=== PATIENT | female | born 1950 | race Caucasian/White ===

== ENCOUNTER → 2018-01-23 08:13 | Outpatient (CLI) | payer MEDICARE, OTHER, SELFPAY ==
[2018-01-25 03:09] LABS: PROEL- A/G Ratio 1.4 (0.7-1.7); PROEL- Alpha-1 Globulin 0.2 g/dL (0.0-0.4); PROEL- Alpha-2 Globulin 0.8 g/dL (0.4-1.0); PROEL- Beta Globulin 0.9 g/dL (0.7-1.3); PROEL- Gamma Globulin 0.9 g/dL (0.4-1.8); PROEL- Globulin, Total 2.9 g/dL (2.2-3.9); PROEL- TOTAL PROTEIN 6.9 g/dL (6.0-8.5)
[2018-01-25 08:36] LABS: Arsenic 7245 7 ug/L (2-23); Hep C Antibodies <0.1 s/co ratio (0.0-0.9); Lipoprotein A 46 nmol/L (<75)
[2018-01-26 03:06] LABS: CHOLESTEROL TOTAL 202 mg/dL (100-199); HDL-C 52 mg/dL (>39); HDL-P TOTAL 31.7 umol/L (>=30.5); SMALL LDL-P 255 nmol/L (<=527); TRIGLYCERIDES 74 mg/dL (0-149)
[2018-01-26 07:54] LABS: ANTINUCLEAR ANTIBODIES DIRECT Negative (Negative)
[2018-01-26 07:55] LABS: LDL-C 135 mg/dL (0-99); LDL-P 1210 nmol/L (<1000); LP-IR SCORE ** 29 (<=45)
== END ==
PROVIDERS: Family Provider Internal Medicine; PCP Internal Medicine; Visit Provider Internal Medicine
DX: R20.2 Paresthesia of skin (principal); E78.00 Pure hypercholesterolemia, unspecified; E78.89 Other lipoprotein metabolism disorders
CPT/HCPCS: 36415; 80061; 82175; 83655; 83695; 83704; 83825; 84165; 86038; 86803

== ENCOUNTER → 2018-03-27 10:12 | Outpatient (CLI) | payer MEDICARE, OTHER, SELFPAY ==
[2018-03-27 11:11] LABS: Absolute Lymphocyte Count 1.22 X10^3/ul (0.83-4.51); Absolute Neutrophil Count 2.4 X10^3/uL (2.0-7.7); Basophil# 0.02 X10^3/uL; Basophil% 0.5 % (0-1); Eosinophil# 0.15 X10^3/uL; Eosinophils% 3.7 % (0-5); Hematocrit 36.5 % (37-47); Lymphocyte # 1.22 X10^3/ul (4.0); Lymphocyte % 30.3 % (19-41); Mean Corp Hgb Conc 32.9 g/gl (32-36); Mean Corpuscular Hgb 30.4 pg (27.0-32.0); Mean Corpuscular Volume 92.4 fL (81-99); Monocyte# 0.24 X10^3/uL; Neutrophil % 59.5 % (47-70); POSITIVE COUNT NO; POSITIVE DIFFERENTIAL NO; POSITIVE MORPHOLOGY NO; Platelet Count 293 K/mm3 (150-450); RBC Distribution Width CV 13.2 % (11.6-14.6); RBC Distribution Width SD 44.8 fl (35.1-43.9); Red Blood Count 3.95 M/mm3 (4.2-5.4)
== END ==
PROVIDERS: Family Provider Internal Medicine; PCP Internal Medicine; Visit Provider Internal Medicine Gastroenterology
DX: K50.90 Crohn's disease, unspecified, without complications (principal)
CPT/HCPCS: 36415; 85025

== ENCOUNTER → 2018-08-22 12:15 | Outpatient (CLI) | payer MEDICARE, SELFPAY, OTHER ==
--- NOTE | 2018-08-22 12:21 | US_ITS ---
STUDY: SUPERFICIAL ULTRASOUND - BILATERAL FEET REASON FOR EXAM: Female, 67 years old. Paresthesias in toes, more prominent on the left, evaluate for Ruffin's neuroma. TECHNIQUE: A superficial ultrasound was performed with real-time and static parsons-scale imaging. COMPARISON: None. FINDINGS: Sonographic imaging of both the right and left mid to forefoot showed only normal subcutaneous and muscular tissues overlying the metatarsals. No demonstrated soft tissue mass or fluid collection. A Ruffin's neuroma was not demonstrated. US/Ext Non Vasc Limited/Soft Tiss IMPRESSION: No sonographic demonstration of Ruffin's neuroma in either the right or left foot. Electronically Signed: Victoriano Vazquez MD at 19:16 EDT , Service support ,
[2018-08-22 12:34] VITALS: BP 146/58; PULSE 52; RESP 14; TEMP 37.1; O2SAT 98; BMI 24.6
--- NOTE | 2018-08-22 12:41 | CT_ITS ---
STUDY: CT CHEST WITHOUT CONTRAST REASON FOR EXAM: Female, 68 years old. Calcium scoring exam. This is an over read examination for the thorax. RADIATION DOSAGE (If Supplied By Facility): CTDIvol = ( 12.19 ) mGy, DLP = ( 219.42 ) mGycm TECHNIQUE: Transaxial imaging was performed without the administration of intravenous contrast material. Individualized dose optimization techniques were used for this CT. COMPARISON: None. FINDINGS: Scattered bilateral calcified granulomas. There is no demonstrated pleural abnormality. There are calcifications of the coronary arteries. There are multiple small lymph nodes within the mediastinum, which are normal in size and morphology most compatible with reactive lymph hyperplasia. Calcified bilateral hilar lymph nodes. Normal unenhanced pulmonary arteries. There is atherosclerotic calcification of the aortic arch and descending thoracic aorta. There are degenerative changes of the thoracic spine. There is no demonstrated abnormality of the visualized upper abdomen. CT/Limited Chest CT w/CCTA IMPRESSION: Multiple calcified granulomas in the liver and spleen. Calcified coronary arteries. Electronically Signed: Valentin Marti MD at 8:25 EDT Tel [phone], Service support ,
--- NOTE | 2018-08-22 17:49 | CA.SCORE ---
Calcium Scoring Date of Study:: 08/22/18 Coronary Calcium Scoring: Coronary calcium score: 1142 Conclusion: Coronary calcium score: 1142 Results: The patient underwent high resolution CT imaging of the chest on 08/22/2018 with attention to the coronary arteries. The images were examined and analyzed for the presence and extent of coronary calcification using coronary calcium quantification software. The patient was reported as tolerating the procedure well with no adverse events. The coronary calcium score was reported at 1142. Based upon pre-published reference tables a coronary calcium score greater than 400 is concerning for extensive plaque burden and the high likelihood of at least one significant coronary artery stenosis being greater than 50% in diameter. Impression: Gus calcium score: 1142 This note was generated with iWarda dictation software. It may contain incorrect words, spelling, and punctuation that were not noted in checking the note before signing.
--- NOTE | 2018-08-22 17:54 | CCTA_ITS ---
Calcium Scoring Date of Study:: 08/22/18 Coronary Calcium Scoring: Coronary calcium score: 1142 Conclusion: Coronary calcium score: 1142 Results: The patient underwent high resolution CT imaging of the chest on 08/22/2018 with attention to the coronary arteries. The images were examined and analyzed for the presence and extent of coronary calcification using coronary calcium quantification software. The patient was reported as tolerating the procedure well with no adverse events. The coronary calcium score was reported at 1142. Based upon pre-published reference tables a coronary calcium score greater than 400 is concerning for extensive plaque burden and the high likelihood of at least one significant coronary artery stenosis being greater than 50% in diameter. Impression: Gus calcium score: 1142 This note was generated with Level dictation software. It may contain incorrect words, spelling, and punctuation that were not noted in checking the note before signing.
== END ==
PROVIDERS: Family Provider Internal Medicine; PCP Internal Medicine; Referring Provider Internal Medicine; Visit Provider Internal Medicine
DX: E78.00 Pure hypercholesterolemia, unspecified (principal); R20.2 Paresthesia of skin
CPT/HCPCS: 75571; 76380; 76882

== ENCOUNTER → 2018-09-02 11:56 | Outpatient (CLI) | payer MEDICARE, OTHER, SELFPAY ==
--- NOTE | 2018-09-02 11:58 | BI_ITS ---
MAMMOGRAPHY - BILATERAL SCREENING 3-D HAYLEY SYNTHESIS REASON FOR EXAM: Female, 68 years old. Bilateral Screening 3-D tomosynthesis PERTINENT HISTORY: Asymptomatic. Biopsy 9 years ago for skin lesion. Conclusions 7 the cyst biopsy. Family breast carcinoma, 2 maternal aunts each age 35. TECHNIQUE: 2-D mammograms and 3-D Hayley synthesis of the breast (s) were performed. CAD was performed. COMPARISON: 08/15/2017, 08/01/2016 and 06/02/2015. FINDINGS: The breast composition is composed of scattered fibroglandular density. Scattered benign appearing calcifications are again seen. No dense spiculated dominant masses or suspicious microcalcification cluster are identified. No new architectural distortion, asymmetric density, adenopathy, skin thickening or nipple retraction identified. There has been no significant change since the most recent prior study. BI/SCREENING MAMM (CAD), BILAT IMPRESSION: No mammographic sign of malignancy. Routine yearly mammograms recommended. ASSESSMENT CATEGORY: BIRADS Category 2: Benign. A letter regarding these results will be sent to the patient by the facility within 30 days. FOLLOW UP RECOMMENDATION: Yearly follow up mammogram recommended. (A) Negative mammographic results should not deter biopsy as a palpable lesion if present should be followed on clinical grounds and biopsy performed if clinically persistent for 3 months or increasing size. Approximately 10% of breast cancers are not detected by mammography. A normal mammogram should not delay biopsy of a clinically suspicious abnormality. Dense breast tissue mainstream neoplasm. . Electronically Signed: Michael Weiner, at 21:05 EDT Tel , Service support ,
== END ==
PROVIDERS: Family Provider Internal Medicine; PCP Internal Medicine; Visit Provider Internal Medicine
DX: Z12.31 Encounter for screening mammogram for malignant neoplasm of breast (principal)
CPT/HCPCS: 77063; 77067

== ENCOUNTER → 2018-09-24 05:57 | Outpatient (CLI) | payer MEDICARE, OTHER, SELFPAY ==
--- NOTE | 2018-09-24 05:59 | ECHOD_ITS ---
Reason For Study: HYPERTENSION Procedure This was a 2D Doppler, Color Flow transthoracic echocardiogram. Exam performed in department. Left Ventricle Normal LV size. Left ventricular systolic function is normal. The estimated ejection fraction is 60 %. Normal diastology for age. No regional wall motion abnormalities noted. Right Ventricle Normal RV size. Normal systolic function. Atria Normal left atrium. Normal right atrium. Mitral Valve Normal mitral valve. Tricuspid Valve Normal tricuspid valve. Mild tricuspid valve insufficiency. Aortic Valve Normal aortic valve. Trisinus/trileaflet aortic valve. Pulmonic Valve Normal pulmonic valve. Great Vessels Normal aortic root. The pulmonary artery is normal size. Normal inferior vena cava. Pericardium/Pleural No pericardial effusion. MMode/2D Measurements & Calculations LVIDd: 4.2 cm IVSd: 1.1 cm Ao root diam: 3.0 cm LVIDs: 3.0 cm LVPWd: 1.1 cm RVDd: 2.6 cm FS: 29.6 % LAV(MOD-bp): 43.2 ml LA A4 area: 14.4 cm2 LA dimension(2D): 3.5 cm LAV(MOD-bp) Indexed: 26.0 ml/m2 LAV(MOD-sp2): 42.6 ml LAV(MOD-sp4): 38.8 ml RA A4 area: 11.0 cm2 Doppler Measurements & Calculations MV E max kevan: 73.3 cm/sec Lat Peak E' Kevan: 10.4 cm/sec Med Peak E' Kevan: 7.6 cm/sec MV A max kevan: 65.1 cm/sec E/E' lat: 7.0 E/E' med: 9.7 MV E/A: 1.1 Ao V2 max: 149.4 cm/sec LV V1 max: 105.6 cm/sec PA V2 max: 88.5 cm/sec Ao max P.9 mmHg LV V1 max P.5 mmHg TR max kevan: 199.4 cm/sec TR max P.9 mmHg Interpretation Summary Normal LV size. Left ventricular systolic function is normal. The estimated ejection fraction is 60 %. Normal diastology for age. Structurally normal valves. Ordering Physician: Amari Jacobson Referring Physician: Shweta Hester Performed By: Irasema Echeverria, RONI, RVT
--- NOTE | 2018-09-24 12:51 | STRESSREP_ITS ---
Stress Test Report Exercise myocardial perfusion stress test. 68-year-old lady with a history of coronary artery disease as per coronary calcium score. Stress protocol: Resting EKG demonstrates normal sinus rhythm with a rate of 75 bpm normal intervals and noted resting blood pressure 138/70 mmHg. The patient exercised according to regular Milan protocol for total duration of 9 minutes completing stage III of the [place] protocol. The maximum heart rate attained was 146 bpm which was 95% of maximum predicted heart rate the maximum workload was 10.1 me tabolic equivalents. The patient maintained sinus rhythm throughout the recording. At rest there were no ST or T wave changes noted suggest ischemia peak exercise upsloping ST changes only were noted with no meet the criteria for ischemia. Occasional premature ventricular complexes were noted. No clinical angina was noted. Resting blood pressure 138/70 with a peak blood pressure 182/62 mmHg rate pressure product was 26,500. Myocardial perfusion protocol. 11.4 mCi of technetium 99m sestamibi was injected at rest. The patient exercised according to regular [place] protocol for 9 minutes attaining 10.1 metabolic equivalents at peak exercise 32.9 mCi of technetium 99m sestamibi was injected stress images were obtained stress and rest images were reconstructed and compared in the short axis vertical long and horizontal long axis. Gated images were also obtained per Perfusion SPECT analysis: Review of the stress images demonstrate normal uptake of tracer noted in all areas of the myocardium. The resting images similarly demonstrate normal uptake of tracer noted in all areas of the myocardium. No areas of reversibility are noted suggest ischemia and no previous infarct is noted. Gated SPECT analysis: The gated ejection fraction is noted to be 71%. Conclusion: Normal exercise myocardial perfusion stress test at a high workload. No clinical angina noted. No arrhythmias noted. Preserved ejection fraction noted. This is a low risk stress test.
== END ==
PROVIDERS: Family Provider Internal Medicine; PCP Internal Medicine; Referring Provider Internal Medicine Cardiovascular Disease; Visit Provider Internal Medicine Cardiovascular Disease
DX: I25.10 Atherosclerotic heart disease of native coronary artery without angina pectoris (principal); I10 Essential (primary) hypertension
CPT/HCPCS: 78452; 93017; 93306; A9500; A4216

== ENCOUNTER → 2018-10-29 06:13 | Outpatient (CLI) | payer MEDICARE, OTHER, SELFPAY ==
--- NOTE | 2018-10-29 15:09 | NEURO ---
NCS and/or EMG Patient Report Ordering Doctor: Shweta Hester DATE OF SERVICE: 10/29/18 Jenifer Zuniga is a 68-year-old female presents for electrodiagnostic testing of the left lower limb. She has chief complaint of burning and pain in the toes for the past 3-4 years. Electrodiagnostic findings: Left peroneal motor nerve demonstrates normal distal latency, amplitude and conduction velocity. Normal left tibial motor response. Normal peroneal and tibial F-wave. Normal H reflex bilaterally. Mildly prolonged left sural latencies noted. Needle EMG all muscles tested in the left lower limb showed no evidence of denervation with normal motor unit action potentials. Electrodiagnostic impression: This is an abnormal study in the left lower limb. 1. 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 It is not clear however if this accounts for her symptoms. If there are any further questions, please not hesitate to contact me.
== END ==
PROVIDERS: Family Provider Internal Medicine; PCP Internal Medicine; Referring Provider Internal Medicine; Visit Provider Internal Medicine
DX: R20.2 Paresthesia of skin (principal)
CPT/HCPCS: 95886; 95910

== ENCOUNTER → 2018-11-03 08:44 | Outpatient (CLI) | payer MEDICARE, OTHER, SELFPAY ==
[2018-09-03 10:13] VITALS: BMI 24.7
[2018-11-03 10:21] LABS: Absolute Lymphocyte Count 0.88 X10^3/ul (0.83-4.51); Absolute Neutrophil Count 2.8 X10^3/uL (2.0-7.7); Basophil# 0.02 X10^3/uL; Basophil% 0.5 % (0-1); Eosinophil# 0.25 X10^3/uL; Eosinophils% 5.8 % (0-5); Hematocrit 36.7 % (37-47); Hemoglobin 11.9 g/dl (12.0-15.0); Lymphocyte # 0.88 X10^3/ul (4.0); Lymphocyte % 20.4 % (19-41); Mean Corp Hgb Conc 32.4 g/gl (32-36); Mean Corpuscular Hgb 30.7 pg (27.0-32.0); Mean Corpuscular Volume 94.8 fL (81-99); Mean Platelet Vol. 10.1 fl (6.2-12.0); Monocyte# 0.35 X10^3/uL; Monocyte% 8.1 % (0-10); Neutrophil # 2.82 X10^3/uL (2.7-7.7); Neutrophil % 65.2 % (47-70); Platelet Count 308 K/mm3 (150-450); RBC Distribution Width CV 12.8 % (11.6-14.6); RBC Distribution Width SD 43.1 fl (35.1-43.9); Red Blood Count 3.87 M/mm3 (4.2-5.4); White Blood Count 4.3 K/mm3 (4.4-11.0)
[2018-11-03 10:23] LABS: POSITIVE COUNT NO; POSITIVE DIFFERENTIAL NO; POSITIVE MORPHOLOGY NO
[2018-11-03 11:01] LABS: AST(SGOT) 22 U/L (15-37); Alanine Aminotransfer ALT/SGPT 27 U/L (13-56); Albumin, Serum 3.8 g/dL (3.2-5.0); Alkaline Phosphatase 76 U/L (45-117); Bilirubin, Direct 0.11 mg/dL (0.00-0.30); Globulin 3.9 g/dL (2.2-4.2); Protein, Total 7.7 g/dL (6.4-8.2)
[2018-11-05 16:09] LABS: CHOLESTEROL TOTAL 142 mg/dL (100-199); HDL-C 55 mg/dL (>39); HDL-P TOTAL 38.1 umol/L (>=30.5); SMALL LDL-P 314 nmol/L (<=527); TRIGLYCERIDES 89 mg/dL (0-149)
[2018-11-06 07:37] LABS: LDL SIZE 20.3 nm (>20.5); LDL-C 69 mg/dL (0-99); LDL-P 661 nmol/L (<1000); LP-IR SCORE ** 29 (<=45)
== END ==
PROVIDERS: Family Provider Internal Medicine; PCP Internal Medicine; Referring Provider Internal Medicine; Visit Provider Internal Medicine
DX: E78.00 Pure hypercholesterolemia, unspecified (principal)
CPT/HCPCS: 36415; 80061; 80076; 83704; 85025

== ENCOUNTER → 2018-11-13 09:47 | Outpatient (CLI) | payer MEDICARE, OTHER, SELFPAY ==
[2018-09-03 10:13] VITALS: BMI 24.7
--- NOTE | 2018-11-13 09:51 | RAD_ITS ---
STUDY: X-RAY CHEST REASON FOR EXAM: Female, 68 years old. Cough, 6 weeks TECHNIQUE: PA and lateral chest COMPARISON: CT chest 08/22/2018 FINDINGS: Stable small calcified pulmonary nodules in the left midlung, old granulomatous disease. Lungs otherwise clear, symmetrically expanded. Normal cardiomediastinal silhouette, karen and pleural margins. No acute osseous or upper abdominal process. RAD/Chest PA and Lateral IMPRESSION: No acute cardiopulmonary process. Electronically Signed: Reymunod Pastrana MD at 14:03 EST Tel , Service support ,
== END ==
PROVIDERS: Family Provider Internal Medicine; PCP Internal Medicine; Referring Provider Internal Medicine; Visit Provider Internal Medicine
DX: R05 Cough (principal)
CPT/HCPCS: 71046

== ENCOUNTER → 2019-01-22 08:45 | Outpatient (CLI) | payer MEDICARE, OTHER, SELFPAY ==
[2019-01-22 09:35] LABS: Anion Gap 5 (5-15); BUN 13 mg/dL (7-18); BUN/Creat Ratio 19.4 RATIO (10-20); Calcium,Total 8.9 mg/dL (8.5-10.1); Chloride 105 mmol/L (98-107); Creatinine, Serum 0.67 mg/dL (0.55-1.02); EST Glomerular Filtration Rate 93 mL/min (>60); Est Glom Filt Rate - Afr Amer 113 mL/min (>60); Glucose 87 mg/dL (74-106); Potassium 3.9 mmol/L (3.5-5.1); Sodium Level 139 mmol/L (136-145)
== END ==
PROVIDERS: Family Provider Internal Medicine; PCP Internal Medicine; Referring Provider Internal Medicine; Visit Provider Internal Medicine
DX: I10 Essential (primary) hypertension (principal)
CPT/HCPCS: 36415; 80048

== ENCOUNTER → 2019-02-23 15:49 | Outpatient (CLI) | payer MEDICARE, OTHER, SELFPAY ==
[2019-02-23 17:18] LABS: Absolute Lymphocyte Count 1.67 X10^3/ul (0.83-4.51); Absolute Neutrophil Count 2.7 X10^3/uL (2.0-7.7); Basophil# 0.05 X10^3/uL; Eosinophil# 0.14 X10^3/uL; Eosinophils% 2.9 % (0-5); Hemoglobin 12.2 g/dl (12.0-15.0); Lymphocyte # 1.67 X10^3/ul (4.0); Lymphocyte % 34.4 % (19-41); Mean Corp Hgb Conc 32.1 g/gl (32-36); Mean Corpuscular Hgb 29.4 pg (27.0-32.0); Mean Corpuscular Volume 91.6 fL (81-99); Mean Platelet Vol. 10.8 fl (6.2-12.0); Monocyte# 0.32 X10^3/uL; Monocyte% 6.6 % (0-10); Neutrophil # 2.67 X10^3/uL (2.7-7.7); Neutrophil % 54.9 % (47-70); Platelet Count 315 K/mm3 (150-450); RBC Distribution Width CV 13.7 % (11.6-14.6); RBC Distribution Width SD 45.1 fl (35.1-43.9); Red Blood Count 4.15 M/mm3 (4.2-5.4); White Blood Count 4.9 K/mm3 (4.4-11.0)
[2019-02-23 17:19] LABS: POSITIVE COUNT NO; POSITIVE DIFFERENTIAL NO; POSITIVE MORPHOLOGY NO
== END ==
PROVIDERS: Family Provider Internal Medicine; PCP Internal Medicine; Referring Provider Internal Medicine Gastroenterology; Visit Provider Internal Medicine Gastroenterology
DX: K50.90 Crohn's disease, unspecified, without complications (principal)
CPT/HCPCS: 36415; 85025

== ENCOUNTER → 2019-04-06 | Outpatient (CLI) | payer MEDICARE, OTHER, SELFPAY ==
--- NOTE | 2019-04-06 13:26 | RAD_ITS ---
STUDY: X-RAY - CERVICAL SPINE REASON FOR EXAM: Female, 68 years old. Pain TECHNIQUE: 4 view(s) of the cervical spine were obtained. COMPARISON: None FINDINGS: There is no evidence of fracture or dislocation in the cervical spine. The dens is intact. The vertebral body heights are well-maintained. There are mild degenerative changes with disc space narrowing and small osteophytes at C4/5, C5/6 and C6/7. The prevertebral soft tissues are unremarkable. There is no radiodense foreign body. RAD/Cerv Spine 2 or 3 Views IMPRESSION: No fracture or dislocation in the cervical spine. Mild degenerative changes in the mid to lower cervical spine. Electronically Signed: Deshawn Watkins, at 15:28 EDT Tel , Service support ,
== END | disposition home or self-care (01) ==
PROVIDERS: Family Provider Internal Medicine; PCP Internal Medicine; Referring Provider Internal Medicine; Visit Provider Internal Medicine
DX: M54.12 Radiculopathy, cervical region (principal)
CPT/HCPCS: 72040

== ENCOUNTER → 2019-04-28 | Outpatient (CLI) | payer MEDICARE, OTHER, SELFPAY ==
[2018-09-03 10:13] VITALS: BMI 24.7
--- NOTE | 2019-04-28 06:45 | MRI_ITS ---
STUDY: MRI CERVICAL SPINE WITHOUT CONTRAST REASON FOR EXAM: Female, 68 years old. Neck pain radiating to the right shoulder and arm for 3 weeks. TECHNIQUE: Standardized fat and water weighted pulse sequences were obtained in the sagittal and axial planes. COMPARISON: Radiographs of the cervical spine dated April 06, 2019. FINDINGS: Normal foramen magnum and brainstem-cervical cord junction. Normal craniovertebral junction. Normal anterior atlantoaxial articulation. Normal odontoid process. Normal cervical lordosis. Vertebral bodies have normal height and alignment. C2-3: Normal endplates. Normal disc height, signal and morphology. Normal central canal and intervertebral neural foramina. C3-4: Normal endplates. Normal disc height, signal and morphology. Normal central canal and intervertebral neural foramina. C4-5: There is a small focal central disc protrusion. This contacts the spinal cord. . There is severe right-sided neural foraminal narrowing with probable neural impingement. The left neural foramen is patent. There is mild central acquired canal stenosis. C5-6: There is narrowing of the disc. There are Schmorl's nodes in the superior and inferior endplate of C5. There is disc bulge and osteophyte complex. There is mild neural foraminal narrowing with uncovertebral joint hypertrophy. There is no significant central acquired canal stenosis. C6-7: There is narrowing of the disc. There is a broad central disc protrusion. The neural foramina are patent. There is mild central acquired canal stenosis. C7-T1: Normal endplates. Normal disc height, signal and morphology. Normal central canal and intervertebral neural foramina. Normal cervical cord. There is no demonstrated cervical cord syrinx cavity. There is mild thickening of the cervical esophageal cano measuring up to 5.6 mm. MRI/Spine Cervical (Routine) IMPRESSION: Multilevel degenerative disc disease and degenerative arthropathy of the cervical spine with acquired canal stenosis and neural foraminal narrowing, as described. Electronically Signed: Dee Dee Amin MD at 8:20 EDT , Service support ,
== END | disposition home or self-care (01) ==
LOC: MRI 06:37
PROVIDERS: Family Provider Internal Medicine; PCP Internal Medicine; Referring Provider Internal Medicine; Visit Provider Internal Medicine
DX: M54.12 Radiculopathy, cervical region (principal)
CPT/HCPCS: 72141

== ENCOUNTER 2019-04-29 09:00 | Outpatient (RCR) | payer MEDICARE, OTHER, SELFPAY ==
--- NOTE | 2019-04-07 13:55 | HP.PTEVAL_ITS ---
Patient's Visit Information JOHN LAWRENCE is a 68 year old F referred to Physical Therapy by Shweta Schulte MD with a diagnosis of RIGHT ARM RADICULOPATHY. Date of Evaluation: 04/06/19 Physical Therapist: Cynthia Street PT, Cert MDT - Visit Plan Frequency: 2-3x /Week Duration: 4-6 Weeks Plan: ULTRASOUND AND STM TO RIGHT CERVCIAL/SHOULDER REGIONS. CERVICAL TX. POSTURE CORRECTION/STRENGTHENING, INSTRUCTION IN APPROPRIATE BODY MECHANICS AND ACTIVITY MODIFICATIONS. SARAH UE ROM, STRETCHING AND STRENGTHENING. HEP INSTRUCTION. - Subjective Findings: Work/Leisure: RETIRED. Disability: NO. Present symptoms: RIGHT SHOULDER BLADE PAIN THAT RADIATES ALL THE WAY DOWN RIGHT UE TO FINGERS. MILD IN FINGERS. NO NUMBNESS OR TINGLING. RIGHT NECK PAIN. Present since: Saturday. Pain Scale: Worst - 9/10 Least - 3/10. Currently: 05/04. Commenced as a result of: NO APPARENT REASON. Symptoms at onset: RIGHT SHOULDER BLADE. Worse: LOOKING DOWN, TURNING HEAD, TRYING TO DO THINGS THAT I NORMALLY DO LIKE SEWING, COOKING, DRIVING, LIFTING, LAUNDRY. Better: PAIN MEDICINE - TOOK HUSBANDS PERCOCET AND ALTRAM OTHERWISE OVER THE COUNTER MEDS - NOW HAS SCRIPT FOR ALTRAM FROM DR. SCHULTE (JUST CAME FROM SEEING DR. SCHULTE, RECLINING. PRETTY MUCH HAS JUST BEEN SITTING AND RECLINING THE LAST TWO DAYS. OTC MEDS HELPED SOME. Disturbed sleep: YES. Previous history/Previous treatment: HISTORY OF NECK PROBLEMS/PAIN TREATED BY CHIROPRACTOR OVER ABOUT 5 YEARS. LAST VISIT TO CHIROPRACTOR FOR NECK WAS A MONTH AGO. LONG HISTORY OF NECK PAIN/STIFFNESS BUT NO HISTORY OF PAIN DOWN THE ARM LIKE THIS. Dizziness: WITH PERCOCET. Tinnitis: NO. Nausea: YES. Shortness of Breath: NO. Difficulty Swollowing: NO. Gait: NORMAL. Accidents: NO. Unexplained weight loss: NO. Imaging: NECK X-RAY TODAY. PMH/Recent major surgery: HTN, JAVY'S DZ, SLEEP APNEA, MIGRAINES. PLOF (Prior Level of Function): UNLIMITED. OTHER: ALEXANDRA'T WITH CHIROPRACTOR TOMORROW AND STATES DR. SCHULTE SAID THAT IS FINE. - Objective Sitting Posture/Standing Posture: POOR. FORWARD HEAD AND ROUNDED SHOULDERS. NO TORTICOLLIS. Active Correction of posture: WORSE. Other Observations: INDEP GAIT AND TRANSFERS. Motor deficit: 40 LBS RIGHT SWIMMING POOL SERVICEPERSON AND 55 LEFT SWIMMING POOL SERVICEPERSON. PATIENT IS RIGHT HAND DOMINANT. LEFT UE WFL. RIGHT UE WEAKER THAN RIGHT GROSSLY 4/5. Sensory deficit: NO. ROM deficit: SARAH UE'S WFL. PATIENT DENIES INCREASED PAIN WITH UE ROM TESTING SARAH. Reflexes: 2/3 SARAH UE'S. Dural Signs: POSITIVE RIGHT UE. Cervical Mvmt Loss: Flex: MIN - INCREASES RIGHT NECK PAIN AND DOWN UPPER BACK. Pro: NIL. Ext: MOD - NE. Ret: LULA - NE. RSB: MIN. LSB: MOD - INCREASES RIGHT NECK SX. R Rot: MOD - INCRASES RIGHT NECK/SHOULDER. L Rot: MIN - NE. Postural strength: POOR. Palpation: NO ACUTE TENDERNESS WITH PALPATION. PATIENT DENIES ANY RECENT FALLS. DURING EXAM REPORTS DOING EXTRA SEWING BEFORE ONSET OF THIS PAIN. OTHER: MEMBER HERE AND AT [facility]. BIKE RIDES. NOT A LOT OF EX LATELY. STATES WANTS TO BE BETTER FOR TRIP TO [place] APRIL 30. OTHER TESTS: MANUAL CERVICAL TRACTION RELIEVES RIGHT SHOULDER BLADE PAIN TEMPORARILY. - Goals Goal 1:: DECREASE C/O RIGHT NECK AND UE SX'S. Goal Time Frame: 4-6 Weeks Goal 2:: IMPROVE LOOKING DOWN, TURNING HEAD, SEWING, COOKING, DRIVING, LIFTING, LAUNDRY, OTHER HOUSEWORK AND SLEEP FUNCTION. AND TO BE ABLE TO TRAVEL FOR VACATION. Goal Time Frame: 4-6 Weeks Goal 3:: INSTRUCT IN PROPHYLAXIS Goal Time Frame: 4-6 Weeks - Rehabilitation Potential Rehabilitation Potential: Fair - Anticipated Interventions Patient/Client Instruction: Educate patient on: Condition, Plan of Care, Risk Factors, Benefits of Fitness Program For the Purpose of:: To improve self management Therapeutic Exercise to Include: Strength training, Body mechanics, Postural training, Active ROM, Scapular Strength/Stabilization For the Purpose of:: To decrease pain, To increase ROM, To improve muscle performance and motor function, To increase tolerance to activity/condition/position, To improve ability of physical actions for home/community/work/leisure Manual Therapy Techniques to Include: Mobilization, Soft tissue mobilization For the Purpose of:: To decrease pain, To increase ROM, To improve nutrient delivery to tissue Cryotherapy (ice pack, ice massage): Yes Thermo therapy (hot pack): Yes Ultrasound (thermal/non thermal): Yes For the Purpose of:: To decrease pain, To decrease swelling/inflammation, To increase ROM, To improve nutrient delivery to tissue Thank you for the opportunity to evaluate your patient. For Medicare and Medicare HMO plans, please review the plan of care and approve it. It will need to be FAXED BACK to us at [phone] for Medicare purposes. For Medicare only, by signing this I certify the plan of care. Please let me know if there are questions or concerns regarding this plan of care. Physician Daisy dodson: Date:
--- NOTE | 2019-04-29 10:11 | HP.PTDCSUM ---
HP - PT D/C Summary It has been my pleasure to treat JOHN LAWRENCE under orders from Shweta Hester MD, for the diagnosis of RIGHT ARM RADICULOPATHY for a total of 10 visit(s). Discharge Date: 04/29/19 Please see the following information for a summary of their discharge status. - Subjective Subjective: PATIENT REPORTS SHE IS DOING A LOT BETTER. STATES SHE HAS BEEN DOING REALLY GOOD SINCE LAST VISIT. DOES STILL HAVE THE CONSTANT MILD NUMBNESS IN DIGITS 3 AND 4, ALSO MAYBE 2. LEAVING FOR VACATION. HAD MRI YESTERDAY. STATING SHE IS THANKFUL FOR THE PHYSICAL THERAPY. - Pain RIGHT SCAP Pain Intensity (Out of 10): 1 RIGHT UPPER TRAP/SHLD Pain Intensity (Out of 10): 1 - Overall Improvement % Improvement: 95 - Objective Objective/Function: PATIENT HAS RESPONDED TO PHYSICAL THERAPY WELL AND HAS MADE GOOD PROGRESS TOWARD ALL GOALS HOWEVER SHE STILL HAS CONSTANT RIGHT UE SX'S TO HER FINGERS AND DECREASED EXECUTIVE COMMUNITY PLANNING STRENGTH RIGHT COMPARED TO LEFT. PHYSICIAN FOLLOW UP RECOMMENED AND PATIENT PLANS TO GET MRI RESULTS FROM DR. HESTER SOON POSSIBLE AND BEFORE LEAVING FOR VACATION. UPON EXAM TODAY SHE DEMONSTRATES INCREASED PAINFREE CERVICAL ROM. SHE STILL HAS GOOD FUNCTIONAL ROM AND STRENGTH OF THE RIGHT UE BUT DOES HAVE THE EXECUTIVE COMMUNITY PLANNING WEAKNESS AND END RANGE TIGHTNESS RIGHT SHOULDER. SHE IS INDEP WITH A HEP AND COMMUNICATES A GOOD UNDERSTANDING OF ALL INSTRUCTIONS GIVEN. PATIENT MAY BENEFIT FROM A HOME CERVICAL TRACTION UNIT IF SHE DOES NOT CONTINUE TO GET BETTER WITH HEP. THIS WAS DISCUSSED WITH HER. UPON EXAM TODAY: Sitting Posture/Standing Posture: IMPROVING. Active Correction of posture: NE. Other Observations: INDEP GAIT AND TRANSFERS. Motor deficit: 45 LBS RIGHT EXECUTIVE COMMUNITY PLANNING AND 55 LEFT EXECUTIVE COMMUNITY PLANNING. PATIENT IS RIGHT HAND DOMINANT. LEFT UE WFL. RIGHT UE WEAKER THAN RIGHT GROSSLY 4/5. Sensory deficit: NO EXCEPT MILD RIGHT DIGITS 2, 3 AND 4. THIS WAS NOT DETECTED AT INITIAL EVAL. ROM deficit: SARAH UE'S WFL WITH END RANGE TIGHTNESS RIGHT SHOULDER FLEXION. PATIENT DENIES INCREASED PAIN WITH UE ROM TESTING SARAH. Dural Signs: POSITIVE RIGHT UE. Cervical Mvmt Loss: Flex: NIL. Pro: NIL. Ext: MOD - NE. Ret: LULA - NE. RSB: MIN. LSB: MIN - NE. R Rot: MIN - NE. L Rot: MIN - NE. Postural strength: FAIR. NECK OSWESTRY HAS IMPROVED FROM 25 TO 7. - Goals Goal 1:: DECREASE C/O RIGHT NECK AND UE SX'S. Goal Progress: Goal Met Goal 2:: IMPROVE LOOKING DOWN, TURNING HEAD, SEWING, COOKING, DRIVING, LIFTING, LAUNDRY, OTHER HOUSEWORK AND SLEEP FUNCTION. AND TO BE ABLE TO TRAVEL FOR VACATION. Goal Progress: Goal Met Goal 3:: INSTRUCT IN PROPHYLAXIS Goal Progress: Goal Met - Plan Plan: D/C FROM PT DUE TO LEAVING FROM VACATION. RECOMMEND PHYSICIAN FOLLOW UP WHICH PATIENT PLANS TO DO FOR MRI RESULTS PRIOR TO LEAVING FOR VACATION. WE WOULD BE HAPPY TO RESUME THERAPY UPON RETURN FROM [facility] IF NEEDED. - D/C Information If there are questions or concerns regarding this patient's physical therapy, please feel free to call me at [phone]. Thank you for the referral of this patient. Sincerely, Cynthia Street, PT, Cert MDT
== END 2019-04-29 19:00 | disposition home or self-care (01) ==
LOC: PT 09:00
PROVIDERS: Family Provider Internal Medicine; PCP Internal Medicine; Referring Provider Internal Medicine; Visit Provider Internal Medicine
DX: M54.10 Radiculopathy, site unspecified (principal)
CPT/HCPCS: 97012; 97035; 97110; 97140; 97162; 97530

== ENCOUNTER → 2019-05-22 | Outpatient (CLI) | payer MEDICARE, OTHER, SELFPAY ==
[2019-05-22 12:56] LABS: Absolute Lymphocyte Count 1.23 X10^3/ul (0.83-4.51); Absolute Neutrophil Count 2.9 X10^3/uL (2.0-7.7); Basophil# 0.03 X10^3/uL; Basophil% 0.6 % (0-1); Eosinophil# 0.17 X10^3/uL; Eosinophils% 3.6 % (0-5); Hematocrit 35.2 % (37-47); Hemoglobin 11.4 g/dl (12.0-15.0); Lymphocyte # 1.23 X10^3/ul (4.0); Lymphocyte % 26.3 % (19-41); Mean Corp Hgb Conc 32.4 g/gl (32-36); Mean Corpuscular Hgb 30.3 pg (27.0-32.0); Mean Corpuscular Volume 93.6 fL (81-99); Mean Platelet Vol. 10.5 fl (6.2-12.0); Monocyte# 0.37 X10^3/uL; Monocyte% 7.9 % (0-10); Neutrophil # 2.88 X10^3/uL (2.7-7.7); Neutrophil % 61.6 % (47-70); Platelet Count 307 K/mm3 (150-450); RBC Distribution Width CV 13.8 % (11.6-14.6); RBC Distribution Width SD 46.1 fl (35.1-43.9); Red Blood Count 3.76 M/mm3 (4.2-5.4); White Blood Count 4.7 K/mm3 (4.4-11.0)
[2019-05-22 13:00] LABS: POSITIVE COUNT NO; POSITIVE DIFFERENTIAL NO; POSITIVE MORPHOLOGY NO
== END | disposition home or self-care (01) ==
LOC: LAB 09:01
PROVIDERS: Family Provider Internal Medicine; PCP Internal Medicine; Referring Provider Internal Medicine Gastroenterology; Visit Provider Internal Medicine Gastroenterology
DX: K50.90 Crohn's disease, unspecified, without complications (principal)
CPT/HCPCS: 36415; 85025

== ENCOUNTER → 2019-09-14 08:45 | Outpatient (CLI) | payer MEDICARE, OTHER, SELFPAY ==
[2018-09-03 10:13] VITALS: BMI 24.7
--- NOTE | 2019-09-14 08:47 | CDU_ITS ---
Reason For Study: carotid stenosis Rt. Velocities/BP Lt. Velocities/BP Prox CCA 62.1/8.7 cm/sec. Prox CCA 74.6/17.5 cm/sec. Mid CCA 62.5/14.2 cm/sec. Mid CCA 75.7/17.5 cm/sec. Dist CCA 62.5/17.5 cm/sec. Dist CCA 79.0/23.0 cm/sec. Prox ICA 74.8/23.2 cm/sec. Prox ICA 81.2/16.4 cm/sec. Mid ICA 82.2/31.8 cm/sec. Mid ICA 81.2/25.2 cm/sec. Dist ICA 107.7/28.8 cm/sec. Dist ICA 62.5/20.8 cm/sec. Rt. ICA/CCA = 82.2/62.5=1.3. Lt. ICA/CCA = 81.2/75.7=1.1. Prox ECA 89.1/9.7 cm/sec. Prox ECA 75.7/10.9 cm/sec. Rt. Vert. 44.9/15.3 cm/sec. Lt. Vert. 41.5/14.1 cm/sec. Right Extracranial There is intimal thickening but no significant atherosclerotic plaque noted in the right common carotid artery. Two hypoechoic structures noted medial to CCA mid measuring 0.27 cm x 0.36 cm and 0.33 cm x 0.47 cm. There is heterogeneous, smooth atherosclerotic plaque noted in the right internal carotid artery. The right internal carotid artery is very tortuous. There is no significant atherosclerotic plaque noted in the right external carotid artery. Antegrade flow is noted in the right vertebral artery. Left Extracranial There is intimal thickening but no significant atherosclerotic plaque noted in the left common carotid artery. There is heterogeneous, irregular atherosclerotic plaque noted in the left internal carotid artery. Heterogenous structure noted medial to LT CCA mid, measuring 0.65 cm x 0.73 cm. There is no significant atherosclerotic plaque noted in the left external carotid artery. Antegrade flow is noted in the left vertebral artery. Procedure Carotid Duplex [id number]. The exam was diagnostic. Exam performed in department. Interpretation Summary Mild (<50%) stenosis right extracranial internal carotid. Mild (<50%) stenosis left extracranial internal carotid. Flow within the vertebral arteries is antegrade bilaterally. Ordering Physician: Shweta Hester Referring Physician: Shweta Hester Performed By: Irasema Echeverria, RONI, RVT
== END ==
PROVIDERS: Family Provider Internal Medicine; PCP Internal Medicine; Referring Provider Internal Medicine; Visit Provider Internal Medicine
DX: I65.23 Occlusion and stenosis of bilateral carotid arteries (principal)
CPT/HCPCS: 93880

== ENCOUNTER → 2019-09-30 11:26 | Outpatient (CLI) | payer MEDICARE, OTHER, SELFPAY ==
[2018-09-03 10:13] VITALS: BMI 24.7
--- NOTE | 2019-09-30 11:28 | BI_ITS ---
MAMMOGRAPHY - BILATERAL SCREENING REASON FOR EXAM: Female, 69 years old. Routine annual screening examination. PERTINENT HISTORY: Aunts with breast cancer. TECHNIQUE: Digital bilateral breast miguel (3D mammographic acquisition) in the CC and MLO projections. 2-D mediolateral oblique (MLO) and craniocaudad (CC) views of both breasts were obtained. CAD: Full Field Digital Mammography with Computer Added Detection was performed. COMPARISON: Comparison is made with prior study dated September 02, 2018 and August 15, 2017. FINDINGS: Breast Composition: There are scattered areas of fibroglandular density. There are no dominant masses or suspicious calcifications. No other significant abnormalities are identified. There has been no significant change since the prior study. BI/SCREENING MAMM (CAD), BILAT IMPRESSION: Stable bilateral screening mammogram. Yearly follow-up mammogram recommended. (A) ASSESSMENT CATEGORY: BIRADS Category 1: Negative. A letter regarding these results will be sent to the patient by the facility within 30 days. Approximately 10% of breast cancers are not detected by mammography. A normal mammogram should not delay biopsy of a clinically suspicious abnormality. [id number] Electronically Signed: Valentin Marti, at 12:41 EST , Service support ,
--- NOTE | 2019-09-30 11:33 | BD_ITS ---
STUDY: DUAL ENERGY X-RAY ABSORPTIOMETRY / DXA REASON FOR EXAM: Female, 69 years old. The patient is postmenopausal. Loss of height. TECHNIQUE: Bone Mineral Density (BMD) measurements of lumbar spine and bilateral hips were obtained. COMPARISON: Comparison is made with prior study dated August 15, 2017. FINDINGS: Lumbar Spine (L1-L4): g/cm2 (1.118) / T-score (-0.4) / Z-score (1.2) Findings are suggestive of normal bone density with a low fracture risk. Left Femur Total: g/cm2 (0.956) / T-score (-0.4) / Z-score (0.9) Left Femoral Neck: g/cm2 (0.866) / T-score (-1.2) / Z-score (0.4) Right Femur Total: g/cm2 (0.91) / T-score (-0.8) / Z-score (0.5) Right Femoral Neck: g/cm2 (0.822) / T-score (-1.6) / Z-score (0.0) The T-Scores on the most recent prior examination were: Lumbar Spine (L1-L4): There has been worsening of bone density since the previous examination. Left Femur Total: which represents a worsening of 2%. Right Femur Total: which represents a worsening of 4.1%. BD/Dexa Bone Density Study IMPRESSION: The patient is considered osteopenic as outlined below according to World Kye Organization (WHO) criteria with a moderate fracture risk. There has been worsening of bone density since the previous examination. Reference Information: The T-score is the number of standard deviations above or below the standard which is normal for young adults at their peak bone mineral density. The World Health Organization (WHO) interprets the T-scores as follows: Above -1 Normal bone density Between -1 and -2.5 Osteopenia Equal to / or below -2.5 Osteoporosis As a practical clinical guideline, osteopenia may be graded as follows: Mild -1 through -1.5 Moderate -1.6 through -2.0 Severe -2.1 through -2.4 The Z-score is the number of standard deviations above or below age-matched controls. A Z-score of less than -1.5 would be considered abnormal. References: 1. NIH Osteoporosis and Related Bone Diseases http://www.osteo.org 2. International Society for Clinical Densitometry http://www.iscd.org 3. National Osteoporosis Foundation http://www.nof.org Electronically Signed: Valentin Marti, at 13:28 EST , Service support ,
== END ==
PROVIDERS: Family Provider Internal Medicine; PCP Internal Medicine; Referring Provider Internal Medicine; Visit Provider Internal Medicine
DX: Z12.31 Encounter for screening mammogram for malignant neoplasm of breast (principal); Z78.0 Asymptomatic menopausal state
CPT/HCPCS: 77067; 77080

== ENCOUNTER 2020-01-07 11:15 | Outpatient (RCR) | payer MEDICARE, OTHER, SELFPAY ==
[2019-10-27 08:34] VITALS: BMI 25.7
[2020-01-07 12:48] LABS: Absolute Lymphocyte Count 1.24 X10^3/uL (0.83-4.51); Absolute Neutrophil Count 3.1 X10^3/uL (2.0-7.7); Basophil# 0.04 X10^3/uL; Basophil% 0.8 % (0-1); Eosinophil# 0.16 X10^3/uL; Eosinophils% 3.3 % (0-5); Hematocrit 38.7 % (37-47); Hemoglobin 12.7 g/dL (12.0-15.0); Lymphocyte # 1.24 X10^3/ul (4.0); Lymphocyte % 25.8 % (19-41); Mean Corp Hgb Conc 32.8 g/dL (32-36); Mean Corpuscular Hgb 30.5 pg (27.0-32.0); Mean Corpuscular Volume 92.8 fL (81-99); Mean Platelet Vol. 10.4 fl (6.2-12.0); Monocyte% 6.3 % (0-10); NRBC Flagged by Analyzer 0 % (0-5); Neutrophil # 3.05 X10^3/uL (2.7-7.7); Neutrophil % 63.6 % (47-70); Platelet Count 326 K/mm3 (150-450); RBC Distribution Width SD 43.8 fl (35.1-43.9); Red Blood Count 4.17 M/mm3 (4.2-5.4); White Blood Count 4.8 K/mm3 (4.4-11.0)
== END 2020-01-07 18:00 | disposition home or self-care (01) ==
LOC: LAB 11:15
PROVIDERS: PCP Internal Medicine; Referring Provider Internal Medicine Gastroenterology; Visit Provider Internal Medicine Gastroenterology
DX: K50.90 Crohn's disease, unspecified, without complications (principal)
CPT/HCPCS: 36415; 85025

== ENCOUNTER 2020-05-23 09:00 | Outpatient (RCR) | payer MEDICARE, OTHER, SELFPAY ==
[2019-10-27 08:34] VITALS: BMI 25.7
[2020-05-23 09:55] LABS: Absolute Lymphocyte Count 1.29 X10^3/uL (0.83-4.51); Basophil# 0.07 X10^3/uL; Basophil% 1.4 % (0-1); Eosinophil# 0.32 X10^3/uL; Eosinophils% 6.3 % (0-5); Hematocrit 37.2 % (37-47); Lymphocyte # 1.29 X10^3/ul (4.0); Lymphocyte % 25.6 % (19-41); Mean Corp Hgb Conc 32.3 g/dL (32-36); Mean Corpuscular Hgb 30.9 pg (27.0-32.0); Mean Corpuscular Volume 95.9 fL (81-99); Mean Platelet Vol. 10.4 fl (6.2-12.0); Monocyte% 7.9 % (0-10); NRBC Flagged by Analyzer 0 % (0-5); Neutrophil # 2.95 X10^3/uL (2.7-7.7); Neutrophil % 58.6 % (47-70); Platelet Count 292 K/mm3 (150-450); RBC Distribution Width CV 13.2 % (11.6-14.6); Red Blood Count 3.88 M/mm3 (4.2-5.4)
== END 2020-05-23 18:00 | disposition home or self-care (01) ==
LOC: LAB 09:00
PROVIDERS: PCP Internal Medicine; Referring Provider Internal Medicine Gastroenterology; Visit Provider Internal Medicine Gastroenterology
DX: K50.90 Crohn's disease, unspecified, without complications (principal)
CPT/HCPCS: 36415; 85025

== ENCOUNTER 2020-09-10 20:59 | Emergency (ER) | payer MEDICARE, OTHER, SELFPAY ==
[2019-10-27 08:34] VITALS: BMI 25.7
[2020-09-10 20:59] VITALS: BP 148/79; PULSE 70; RESP 16; TEMP 36.4; O2SAT 99; BMI 26.3
--- NOTE | 2020-09-10 21:14 | ED.DCSUM_ITS ---
- ER Visit Summary Date of Service: 09/10/20 Chief Complaint: [Allergic reaction to bee sting] History of Present Illness: The patient is a 70 F [presents to the emergency department with concern about an allergic reaction to a bee sting that she sustained around 4 PM. Patient states initially she did not think much of it. 4 hours later she started not feeling well and noticed increased welling to the dorsum of her left hand where she was stung. Patient also felt nauseated. Patient also felt that maybe she had some discomfort in her right axilla and some mild swelling compared to the opposite side. She has no history of anaphylactic reaction to bee stings. She did take 25 mg of Benadryl at home. She denies any lip or tongue swelling or difficulty breathing. Patient has history of hypertension and high cholesterol.] Physical Examination: [HEENT-PERRLA, EOMI. Cranial nerves II through XII grossly intact. TMs clear. Mucous membranes moist. No adenopathy. Cardiovascular-regular rate and rhythm without murmur or ectopy Lungs-clear to auscultation, chest wall stable without crepitus or subcu emphysema Abdomen-normoactive bowel sounds, soft, nontender, no rebound or rigidity, no peritoneal signs. Extremities-intact ?4, normal range of motion, normal pulses. Left hand-patient has diffuse soft tissue swelling, edema, and erythema to the dorsum of the left hand. Neurovascularly intact. Evaluation of the right axilla-I do not appreciate any significant adenopathy or abnormality.] Test Results: [None indicated] Emergency Department Course and Treatment: [Patient was given prednisone 40 mg p.o.] Treatment Plan: [We will be treated with prednisone for 3 days. Patient also will be given a prescription for Keflex only to fill if the redness and swelling does not resolve with the prednisone is at this time I suspect the swelling and erythema is likely an inflammatory response rather than infectious process.] Disposition: [Discharged home in stable condition] Impression: [Allergic reaction to bee sting] This note was generated with Imagine K12ation software. It may contain incorrect words, spelling, and punctuation that were not noted in review of the chart prior to signing ED Disposition - Plan for ED Patient: Referrals: Shweta Hester MD [Primary Care Provider] -
--- NOTE | 2020-09-10 21:16 | ED.DEP ---
ED Disposition - Plan for ED Patient: Instructions: ED BEE STING General Allergic Rxn Prescriptions: Prednisone [Deltasone] 20 mg PO BID #6 tab Prescription Printed Cephalexin [Keflex] 500 mg PO Q6 #40 cap Prescription Printed Referrals: Shweta Hester MD [Primary Care Provider] - 3-5 Days
[2020-09-10] MEDS: predniSONE 20 MG Tablet 40 MG PO (21:17)
[2020-09-10 21:20] VITALS: RESP 18
== END 2020-09-10 21:38 | disposition home or self-care (01) ==
LOC: ED 21:30
PROVIDERS: Emergency Provider Emergency Medicine; PCP Internal Medicine
DX: T63.441A Toxic effect of venom of bees, accidental (unintentional), initial encounter (principal); Y92.9 Unspecified place or not applicable; I10 Essential (primary) hypertension; E78.00 Pure hypercholesterolemia, unspecified; Z79.899 Other long term (current) drug therapy
CPT/HCPCS: 99281; 99283

== ENCOUNTER → 2020-10-05 07:29 | Outpatient (CLI) | payer MEDICARE, OTHER, SELFPAY ==
[2020-09-10 20:59] VITALS: BMI 26.3
[2020-09-29 09:27] VITALS: BMI 25.8
--- NOTE | 2020-10-05 07:31 | BI_ITS ---
MAMMOGRAPHY - BILATERAL SCREENING REASON FOR EXAM: Female, 70 years old. Routine annual screening examination. PERTINENT HISTORY: Aunts with breast cancer. TECHNIQUE: Digital bilateral breast hayley (3D mammographic acquisition) in the CC and MLO projections. 2-D mediolateral oblique (MLO) and craniocaudad (CC) views of both breasts were obtained. CAD: Full Field Digital Mammography with Computer Added Detection was performed. COMPARISON: Comparison is made with prior study dated 09/30/2019 and 09/02/2018. FINDINGS: Breast Composition: There are scattered areas of fibroglandular density. There are no dominant masses or suspicious calcifications. No other significant abnormalities are identified. There has been no significant change since the prior study. BI/SCREEN MAMM (CAD) W/HAYLEY BILAT IMPRESSION: Stable bilateral screening mammogram. Yearly follow-up mammogram recommended. (A) ASSESSMENT CATEGORY: BIRADS Category 1: Negative. A letter regarding these results will be sent to the patient by the facility within 30 days. Approximately 10% of breast cancers are not detected by mammography. A normal mammogram should not delay biopsy of a clinically suspicious abnormality. [id number] Electronically Signed: Valentin Marti, at 8:40 EST , Service support ,
== END ==
PROVIDERS: PCP Internal Medicine; Referring Provider Internal Medicine; Visit Provider Internal Medicine
DX: Z12.31 Encounter for screening mammogram for malignant neoplasm of breast (principal)
CPT/HCPCS: 77063; 77067

== ENCOUNTER 2020-11-15 08:57 | Outpatient (RCR) | payer MEDICARE, OTHER, SELFPAY ==
[2019-10-27 08:34] VITALS: BMI 25.7
[2020-09-29 09:27] VITALS: BMI 25.8
[2020-11-15 09:46] LABS: Absolute Lymphocyte Count 1.12 X10^3/uL (0.83-4.51); Absolute Neutrophil Count 2.8 X10^3/uL (2.0-7.7); Basophil# 0.04 X10^3/uL; Basophil% 0.9 % (0-1); Eosinophil# 0.23 X10^3/uL; Eosinophils% 5.1 % (0-5); Hematocrit 37.2 % (37-47); Hemoglobin 12.1 g/dL (12.0-15.0); Lymphocyte # 1.12 X10^3/ul (4.0); Lymphocyte % 24.8 % (19-41); Mean Corp Hgb Conc 32.5 g/dL (32-36); Mean Corpuscular Hgb 30.6 pg (27.0-32.0); Mean Corpuscular Volume 93.9 fL (81-99); Mean Platelet Vol. 10.5 fl (6.2-12.0); Monocyte# 0.28 X10^3/uL; Monocyte% 6.2 % (0-10); NRBC Flagged by Analyzer 0 % (0-5); Neutrophil # 2.84 X10^3/uL (2.7-7.7); Neutrophil % 62.8 % (47-70); Platelet Count 294 K/mm3 (150-450); RBC Distribution Width CV 12.8 % (11.6-14.6); RBC Distribution Width SD 43.9 fl (35.1-43.9); Red Blood Count 3.96 M/mm3 (4.2-5.4); White Blood Count 4.5 K/mm3 (4.4-11.0)
== END 2020-11-15 18:00 ==
LOC: MTLAB 08:57
PROVIDERS: PCP Internal Medicine; Referring Provider Internal Medicine Gastroenterology; Visit Provider Internal Medicine Gastroenterology
DX: K50.90 Crohn's disease, unspecified, without complications (principal)
CPT/HCPCS: 36415; 85025

== ENCOUNTER 2021-05-10 08:38 | Outpatient (RCR) | payer MEDICARE, OTHER, SELFPAY ==
[2020-09-29 09:27] VITALS: BMI 25.8
[2021-05-10 10:25] LABS: Absolute Lymphocyte Count 0.91 X10^3/uL (0.83-4.51); Absolute Neutrophil Count 2.7 X10^3/uL (2.0-7.7); Basophil# 0.04 X10^3/uL; Basophil% 0.9 % (0-1); Eosinophil# 0.27 X10^3/uL; Eosinophils% 6.4 % (0-5); Hematocrit 37.2 % (37-47); Lymphocyte # 0.91 X10^3/ul (0.83-4.51); Lymphocyte % 21.5 % (19-41); Mean Corp Hgb Conc 32.3 g/dL (32-36); Mean Corpuscular Hgb 30.1 pg (27.0-32.0); Mean Corpuscular Volume 93.2 fL (81-99); Mean Platelet Vol. 10.5 fl (6.2-12.0); Monocyte# 0.31 X10^3/uL; Monocyte% 7.3 % (0-10); NRBC Flagged by Analyzer 0 % (0-5); Neutrophil % 63.9 % (47-70); Platelet Count 303 K/mm3 (150-450); RBC Distribution Width SD 44.4 fl (35.1-43.9); Red Blood Count 3.99 M/mm3 (4.2-5.4); White Blood Count 4.2 K/mm3 (4.4-11.0)
== END 2021-05-10 18:00 | disposition home or self-care (01) ==
LOC: MTLAB 08:38
PROVIDERS: PCP Internal Medicine; Referring Provider Internal Medicine Gastroenterology; Visit Provider Internal Medicine Gastroenterology
DX: K50.90 Crohn's disease, unspecified, without complications (principal)
CPT/HCPCS: 36415; 85025

== ENCOUNTER → 2021-07-25 | Outpatient (CLI) | payer MEDICARE, OTHER, SELFPAY | END | disposition home or self-care (01) | PROVIDERS: PCP Internal Medicine; Visit Provider Internal Medicine | DX: Z20.822 Contact with and (suspected) exposure to COVID-19 (principal) | CPT/HCPCS: 87635; U0005; U0003 ==

== ENCOUNTER 2021-07-26 16:51 | Outpatient (CLI) | payer MEDICARE, OTHER, SELFPAY ==
[2021-07-26 17:30] VITALS: BP 125/65; PULSE 69; RESP 18; TEMP 36.9; O2SAT 99; BMI 25.1
[2021-07-26] MEDS: 0.9% Saline Lock 10 ML Syringe IV (17:39)
[2021-07-26 18:07] VITALS: BP 129/68; PULSE 64; RESP 16; TEMP 17.7; O2SAT 98
[2021-07-26 19:04] VITALS: BP 130/61; PULSE 55; RESP 16; TEMP 36.9; O2SAT 97
== END 2021-07-26 19:10 | disposition home or self-care (01) ==
LOC: ICUOUT 16:51 → MS2 16:52
PROVIDERS: PCP Internal Medicine; Referring Provider Nurse Practitioner Acute Care; Visit Provider Nurse Practitioner Acute Care
DX: Z23 Encounter for immunization (principal); U07.1 COVID-19
CPT/HCPCS: J7050; M0243; A4216; Q0244

== ENCOUNTER → 2021-10-17 14:55 | Outpatient (CLI) | payer MEDICARE, OTHER, SELFPAY ==
--- NOTE | 2021-10-17 15:00 | BD_ITS ---
STUDY: DUAL ENERGY X-RAY ABSORPTIOMETRY / DXA REASON FOR EXAM: Female, 71 years old. Z78.0. The patient is postmenopausal. TECHNIQUE: Bone Mineral Density (BMD) measurements of lumbar spine and bilateral hips were obtained. COMPARISON: Comparison is made with prior study dated 09/30/2019. FINDINGS: Lumbar Spine (L1-L4): g/cm2 (1.046) / T-score (0.3) / Z-score (2.3) Findings are suggestive of normal bone density with a low fracture risk. Left Femur Total: g/cm2 (0.850) / T-score (-0.8) / Z-score (0.8) Left Femoral Neck: g/cm2 (0.689) / T-score (-1.4) / Z-score (0.4) Right Femur Total: g/cm2 (0.812) / T-score (-1.1) / Z-score (0.4) Right Femoral Neck: g/cm2 (0.655) / T-score (-1.7) / Z-score (0.1) The T-Scores on the most recent prior examination were: Lumbar Spine (L1-L4): There has been improvement of bone density since the previous examination. Left Femur Total: which represents a worsening of 4.6%. Right Femur Total: which represents a worsening of 3.1%. BD/Dexa Bone Density Study IMPRESSION: The patient is considered osteopenic as outlined below according to World K[place] Organization (WHO) criteria with a moderate fracture risk. There has been worsening of bone density since the previous examination. Reference Information: The T-score is the number of standard deviations above or below the standard which is normal for young adults at their peak bone mineral density. The World Health Organization (WHO) interprets the T-scores as follows: Above -1 Normal bone density Between -1 and -2.5 Osteopenia Equal to / or below -2.5 Osteoporosis As a practical clinical guideline, osteopenia may be graded as follows: Mild -1 through -1.5 Moderate -1.6 through -2.0 Severe -2.1 through -2.4 The Z-score is the number of standard deviations above or below age-matched controls. A Z-score of less than -1.5 would be considered abnormal. References: 1. NIH Osteoporosis and Related Bone Diseases www osteo.org 2. International Society for Clinical Densitometry www iscd.org 3. National Osteoporosis Foundation www nof.org Electronically Signed: Valentin Marti MD at 11:02 EST , Service support ,
--- NOTE | 2021-10-17 15:09 | BI_ITS ---
MAMMOGRAPHY - BILATERAL SCREENING 3-D TOMOSYNTHESIS REASON FOR EXAM: Female, 71 years old. SCREENING PERTINENT HISTORY: Aunts with breast cancer.. TECHNIQUE: 2-D mammograms and 3-D Tomosynthesis of the breast (s) were performed. CAD was performed. COMPARISON: 10/05/2020 FINDINGS: The breast composition is almost entirely fat. Scattered benign calcifications are seen. No dense spiculated masses or suspicious microcalcifications are identified. No architectural distortion is identified. There is no skin thickening or retraction. There has been no significant change since the prior study. BI/SCRN MAMM (CAD)W/HAYLEY BILAT IMPRESSION: No mammographic signs of malignancy. Routine yearly mammograms recommended. ASSESSMENT CATEGORY: BIRADS Category 1: Negative. A letter regarding these results will be sent to the patient by the facility within 30 days. FOLLOW UP RECOMMENDATION: Yearly follow up mammogram recommended. (A) Approximately 10% of breast cancers are not detected by mammography. A normal mammogram should not delay biopsy of a clinically suspicious abnormality. Electronically Signed: Victoriano Thomson MD at 16:17 EST , Service support ,
== END ==
PROVIDERS: PCP Internal Medicine; Referring Provider Internal Medicine; Visit Provider Internal Medicine
DX: Z12.31 Encounter for screening mammogram for malignant neoplasm of breast (principal); Z78.0 Asymptomatic menopausal state
CPT/HCPCS: 77063; 77067; 77080

== ENCOUNTER 2021-11-16 13:26 | Outpatient (RCR) | payer MEDICARE, OTHER, SELFPAY ==
[2020-09-29 09:27] VITALS: BMI 25.8
[2021-11-16 14:35] LABS: Absolute Lymphocyte Count 1.17 X10^3/uL (0.83-4.51); Basophil# 0.06 X10^3/uL; Basophil% 0.9 % (0-1); Eosinophil# 0.18 X10^3/uL; Eosinophils% 2.6 % (0-5); Hematocrit 36.8 % (37-47); Lymphocyte # 1.17 X10^3/ul (0.83-4.51); Lymphocyte % 17.1 % (19-41); Mean Corp Hgb Conc 32.6 g/dL (32-36); Mean Corpuscular Hgb 30.5 pg (27.0-32.0); Mean Corpuscular Volume 93.6 fL (81-99); Mean Platelet Vol. 10.3 fl (6.2-12.0); Monocyte# 0.46 X10^3/uL; Monocyte% 6.7 % (0-10); NRBC Flagged by Analyzer 0 % (0-5); Neutrophil # 4.95 X10^3/uL (2.7-7.7); Neutrophil % 72.4 % (47-70); Platelet Count 312 K/mm3 (150-450); RBC Distribution Width CV 12.9 % (11.6-14.6); RBC Distribution Width SD 44.2 fl (35.1-43.9); Red Blood Count 3.93 M/mm3 (4.2-5.4); White Blood Count 6.8 K/mm3 (4.4-11.0)
== END 2021-11-25 18:00 | disposition home or self-care (01) ==
LOC: MTLAB 13:26
PROVIDERS: PCP Internal Medicine; Referring Provider Internal Medicine Gastroenterology; Visit Provider Internal Medicine Gastroenterology
DX: K50.90 Crohn's disease, unspecified, without complications (principal)
CPT/HCPCS: 36415; 85025

== ENCOUNTER 2022-02-12 06:06 | Outpatient (CLI) | payer MEDICARE, OTHER, SELFPAY ==
--- NOTE | 2022-02-12 14:14 | STRESSREP ---
Stress Test Report Excellent functional capacity. Preserved ejection fraction.Exercise myocardial perfusion stress test. 71-year-old lady with a history of chest pain pain Stress protocol: Resting EKG demonstrates normal sinus rhythm with a rate of 65 bpm normal intervals are noted resting blood pressure is 122/78 mmHg. The patient exercised according to regular [place] protocol for total duration of 9 minutes. The maximum heart rate attained was 144 bpm which was 96% of max impact at heart rate the maximum workload was 10.4 metabolic equivalents. At rest there were no ST or T wave changes noted to suggest ischemia and at peak exercise upsloping ST changes were noted with did not meet the criteria for ischemia. No clinical angina was noted the test was terminated due to the target heart rate being achieved. The peak blood pressure was 184/68 mmHg. Myocardial perfusion protocol. 11.7 mCi of technetium 99m sestamibi was injected at rest. The patient exercised according to regular [place] protocol. At peak exercise 32.8 mCi of technetium 99m sestamibi was injected stress images were obtained stress and rest images were reconstructed and compared in the short axis vertical long horizontal long axis. Gated images were also obtained Perfusion SPECT analysis: Perfusion SPECT analysis: Review of the stress images demonstrate normal uptake of tracer noted in all areas of the myocardium. The resting images similarly demonstrate normal uptake of tracer noted in all areas of the myocardium. No areas of reversibility are noted suggest ischemia and no previous infarct is noted. Gated SPECT analysis: The gated ejection fraction is 69%. Conclusion: Normal exercise myocardial perfusion stress test with no evidence of ischemia noted at a high workload. Excellent functional aerobic capacity.
== END 2022-02-12 23:59 | disposition home or self-care (01) ==
LOC: CVS 06:06
PROVIDERS: PCP Internal Medicine; Referring Provider Internal Medicine Cardiovascular Disease; Visit Provider Internal Medicine Cardiovascular Disease
DX: I25.10 Atherosclerotic heart disease of native coronary artery without angina pectoris (principal)
CPT/HCPCS: 78452; 93017; A9500; A4216

== ENCOUNTER 2022-02-26 07:55 | Outpatient (CLI) | payer MEDICARE, OTHER, SELFPAY ==
--- NOTE | 2022-02-26 08:15 | RAD_ITS ---
PROCEDURE: SMALL BOWEL SERIES DATE OF EXAMINATION: 02/26/2022.. INDICATION: Female, 71 years old. History of Crohn''s disease. Recent diarrhea and abdominal pain. PHYSICIAN: Valentin Marti M.D. FLUOROSCOPY TIME (if supplied): (0:32) minutes/seconds TECHNIQUE: Radiographic and fluoroscopic images were taken of the small intestine following the ingestion of barium. COMPARISON: None. FINDINGS: A preliminary supine KUB was obtained. There is an unremarkable bowel gas pattern. Fecal material is present throughout the colon. Phleboliths are present within the pelvis. The lung bases are unremarkable. Degenerative changes of the lumbar spine. The patient orally ingested approximately 12 ounces of thin barium Normal visualized fundus, body, and antrum of the stomach. Normal duodenal bulb, C-loop, and proximal jejunum. Normal visualized mucosal folds of the jejunum and ileum. There is evidence of a mild degree of irregularity of the terminal ileum. Recurrent Crohn''s disease should be ruled out. There is a normal motor pattern with barium reaching the colon within approximately 60 minutes. Spot films under fluoroscopic observation demonstrated irregular appearance of the terminal ileum. RAD/Small Bowel Series Only IMPRESSION: Irregular appearance of the terminal ileum. This is suggestive of recurrent Crohn''s disease. Electronically Signed: Valentin Marti MD at 14:21 EDT ,
== END 2022-02-26 23:59 | disposition home or self-care (01) ==
LOC: RAD 07:57
PROVIDERS: PCP Internal Medicine; Referring Provider Internal Medicine Gastroenterology; Visit Provider Internal Medicine Gastroenterology
DX: K50.90 Crohn's disease, unspecified, without complications (principal)
CPT/HCPCS: 74250

== ENCOUNTER 2022-05-29 08:56 | Outpatient (RCR) | payer MEDICARE, OTHER, SELFPAY ==
[2022-05-29 10:09] LABS: Absolute Neutrophil Count 4.2 X10^3/uL (2.0-7.7); Basophil# 0.06 X10^3/uL; Eosinophil# 0.19 X10^3/uL; Eosinophils% 3.2 % (0-5); Hematocrit 37.4 % (37-47); Hemoglobin 12.1 g/dL (12.0-15.0); Lymphocyte % 18.5 % (19-41); Mean Corp Hgb Conc 32.4 g/dL (32-36); Mean Corpuscular Hgb 30.8 pg (27.0-32.0); Mean Corpuscular Volume 95.2 fL (81-99); Mean Platelet Vol. 10.3 fl (6.2-12.0); Monocyte# 0.42 X10^3/uL; Monocyte% 7.1 % (0-10); NRBC Flagged by Analyzer 0 % (0-5); Neutrophil # 4.16 X10^3/uL (2.7-7.7); Platelet Count 299 K/mm3 (150-450); RBC Distribution Width CV 13.5 % (11.6-14.6); RBC Distribution Width SD 47.4 fl (35.1-43.9); Red Blood Count 3.93 M/mm3 (4.2-5.4); White Blood Count 5.9 K/mm3 (4.4-11.0)
== END 2022-06-24 03:45 | disposition home or self-care (01) ==
LOC: MTLAB 08:56
PROVIDERS: PCP Internal Medicine; Referring Provider Internal Medicine Gastroenterology; Visit Provider Internal Medicine Gastroenterology
DX: K50.90 Crohn's disease, unspecified, without complications (principal)
CPT/HCPCS: 36415; 85025

== ENCOUNTER 2022-10-03 08:00 | Outpatient (RCR) | payer MEDICARE, OTHER, SELFPAY ==
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
--- NOTE | 2022-10-03 08:58 | HP.PTDCSUM ---
It has been my pleasure to treat JOHN LAWRENCE referred by Dr. Shweta Hester MD, with the diagnosis of CERVICAL STENOSIS for a total of 7 visit(s). Discharge Date: 10/03/22 Please see the following information for a summary of their discharge status. Subjective: Doing good. Seen DR cline for d/c Bilateral Neck Pain Intensity (Out of 10): 0 % Improvement: 90 Objective/Function: POSTURE: WFL. NEURO: intact. PALPATION: occiput. MMT: 4/5 grossly. CERVICAL ROM: flexion ,rotation ,lateral flexion, extension min/mod ,extension mod Goal 1:: Patient to be I with HEP Goal Progress: Goal Met Goal 2:: Patient to demonstrate 50% improvement with decrease pain and improved function. 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 Goal Progress: Goal Met Plan: D/C If there are questions or concerns regarding this patient's physical therapy, please feel free to call me at [phone]. Thank you for the referral of this patient. Sincerely, Clint Garcia, PT, Cert MDT, OCS Balance/Gait/Functional tests - Balance/Special Test Scores Oswestry Neck Score: 1
== END 2022-10-03 19:00 | disposition home or self-care (01) ==
LOC: PT 08:00
PROVIDERS: PCP Internal Medicine; Referring Provider Internal Medicine; Visit Provider Internal Medicine
DX: M48.02 Spinal stenosis, cervical region (principal)
CPT/HCPCS: 97012; 97035; 97162

== ENCOUNTER 2022-10-22 08:32 | Outpatient (CLI) | payer MEDICARE, OTHER, SELFPAY ==
--- NOTE | 2022-10-22 08:34 | BI_ITS ---
MAMMOGRAPHY - BILATERAL SCREENING REASON FOR EXAM: Female, 72 years old. Routine annual screening examination. PERTINENT HISTORY: Aunts with breast cancer. TECHNIQUE: Digital bilateral breast hayley (3D mammographic acquisition) in the CC and MLO projections. 2-D mediolateral oblique (MLO) and craniocaudad (CC) views of both breasts were obtained. CAD: Full Field Digital Mammography with Computer Added Detection was performed. COMPARISON: Comparison is made with prior study dated 10/17/2021 and 10/05/2020. FINDINGS: Breast Composition: The breasts are almost entirely fatty. There are no dominant masses or suspicious calcifications. No other significant abnormalities are identified. There has been no significant change since the prior study. BI/SCRN MAMM (CAD)W/HAYLEY BILAT IMPRESSION: Stable bilateral screening mammogram. Yearly follow-up mammogram recommended. (A) ASSESSMENT CATEGORY: BIRADS Category 1: Negative. A letter regarding these results will be sent to the patient by the facility within 30 days. Approximately 10% of breast cancers are not detected by mammography. A normal mammogram should not delay biopsy of a clinically suspicious abnormality. [id number] Electronically Signed: Valentin Marti MD at 12:32 EST ,
== END 2022-10-22 23:59 | disposition home or self-care (01) ==
LOC: OPBI 08:33
PROVIDERS: PCP Internal Medicine; Visit Provider Internal Medicine
DX: Z12.31 Encounter for screening mammogram for malignant neoplasm of breast (principal); Z80.3 Family history of malignant neoplasm of breast
CPT/HCPCS: 77063; 77067

== ENCOUNTER 2022-12-13 12:32 | Outpatient (RCR) | payer MEDICARE, OTHER, SELFPAY ==
[2022-12-13 15:37] LABS: Absolute Lymphocyte Count 1.33 X10^3/uL (0.83-4.51); Absolute Neutrophil Count 2.8 X10^3/uL (2.0-7.7); Basophil# 0.06 X10^3/uL; Basophil% 1.2 % (0-1); Eosinophil# 0.44 X10^3/uL; Eosinophils% 8.8 % (0-5); Hematocrit 34.5 % (37-47); Hemoglobin 11.2 g/dL (12.0-15.0); Lymphocyte # 1.33 X10^3/ul (0.83-4.51); Lymphocyte % 26.6 % (19-41); Mean Corp Hgb Conc 32.5 g/dL (32-36); Mean Corpuscular Hgb 31.2 pg (27.0-32.0); Mean Corpuscular Volume 96.1 fL (81-99); Mean Platelet Vol. 10.5 fl (6.2-12.0); Monocyte# 0.39 X10^3/uL; Monocyte% 7.8 % (0-10); NRBC Flagged by Analyzer 0 % (0-5); Neutrophil # 2.77 X10^3/uL (2.7-7.7); Neutrophil % 55.4 % (47-70); Platelet Count 299 K/mm3 (150-450); RBC Distribution Width CV 13.2 % (11.6-14.6); RBC Distribution Width SD 47.4 fl (35.1-43.9); Red Blood Count 3.59 M/mm3 (4.2-5.4)
== END 2022-12-13 14:32 | disposition home or self-care (01) ==
LOC: MTLAB 12:32
PROVIDERS: PCP Internal Medicine; Referring Provider Internal Medicine Gastroenterology; Visit Provider Internal Medicine Gastroenterology
DX: K50.90 Crohn's disease, unspecified, without complications (principal)
CPT/HCPCS: 36415; 85025

== ENCOUNTER 2023-07-17 09:30 | Outpatient (RCR) | payer MEDICARE, OTHER, SELFPAY ==
--- NOTE | 2023-06-07 07:46 | HP.PTEVAL_ITS ---
Patient's Visit Information Visit Information Visit Information: JOHN LAWRENCE is a 72 year old F referred to Physical Therapy by Dr. Vilma Retana DO with a diagnosis of LOW BACK AND L HIP PAIN. Date of Evaluation: 06/07/23 Physical Therapist: Cynthia Street, PT, Cert MDT Visit Plan Frequency: 2-3x /Week Duration: 4-6 Weeks Plan: AQUATIC THERAPY FOR PAIN RELIEF, POSTURE CORRECTION/STRENGTHENING, IN STRUCTION IN APPROPRIATE BODY MECHANICS AND ACTIVITY MODIFICATIONS. DLS STARTING WITH A NEUTRAL SPINE PROGRESSING ROM TOLERATED. SARAH LE ROM, STRETCHING AND STRENGTHENING. HEP INSTRUCTION. Subjective Subjective: Work/Leisure: RETIRED. GOES TO [employer] AT [facility], HAS BEEN BIKING MORE THAN WALKING LATELY. Present symptoms: LOW BACK AND L HIP PAIN. PATIENT DENIES SARAH LE NUMBNESS AND TINGLING. Present since: MID- JANUARY 2023 Pain Scale: WORST 5/10, LEAST 0/10 Currently: 10 Is it getting better, worse or staying the same: GETTING BETTER Commenced as a result of: NO APPARENT REASON Symptoms at onset: PAIN DEEP IN L HIP AND LOWER LEFT BACK Worse: STANDING, WALKING, LIFTING Better: RESTING IN SITTING, TOPICAL PAIN RELIEF CREAM AND PATCHES. Disturbed sleep: YES - I CAN'T LAY ON MY L SIDE FOR VERY LONG AND L SIDE ALSO HURTS LAYING ON R SIDE. Previous history/Previous treatment: H/O LOW BACK AND SARAH HIP ACHING WITH WALKING ABOUT 15 MINUTES. NO BACK OR HIP SURGERY. HIP BURSITIS INJECTION A LONG TIME AGO. H/O CHIROPRACTIC NEEDED FOR YEARS WITH LAST VISIT BEING ABOUT A MONTH AGO - HELPFUL. Treatment this episode: PT CONSULT Coughing/sneezing/straining: NEGATIVE Gait: PATIENT REPORTS SHE IS STILL GETTING SOME BACK OR HIP ACHING WITH WALKING BUT IT IS BACK TO ABOUT THE SAME AMT BEFORE THIS FLARE UP IN JANUARY. Bowel or Bladder Dysfunction: NO Accidents: NO Unexplained weight loss: NO Imaging: PATIENT REPORTS RECENT L HIP X-RAY SHOWING JOINT IS NORMAL. ALSO HAD RECENT LOW BACK X-RAY AND PATIENT REPORTS IT SHOWED 2MM MOVEMENT AND ARTHRITIS. SEE [facility] EMR. PATIENT REPORTS DR. RICHARDS RECOMMENDED MRI BUT SHE DECLINED FOR NOW STATING SHE DOESN'T THINK SHE NEEDS ONE AND WANTS TO TRY PHYSICAL THERAPY FIRST. PMH/Recent major surgery: HTN, CHRONES DZ. OTHER: R KNEE PAIN FROM DOING WALL SQUATS HOLDING BALL AT [employer] YESTERDAY. Objective Objective: Sitting/Standing Posture: FAIR. FH. RSH'S. MILD SCOLIOSIS Active Correction of posture: BETTER Other Observations: INDEP GAIT AND TRANSFERS Sensory deficit: SARAH LE LIGHT TOUCH SENSATION GROSSLY INTACT AND SYMMETRICAL ROM deficit: TIGHT SARAH HIP FLEXORS, HIP ROTATORS, HS AND GASTROC-SOLEUS COMPLEX'S. Motor deficit: SARAH LE'S 5/5 WITH MMT'ING EXCEPT HIPS 4/5 Dural Signs: NEGATIVE SARAH LE'S. Lumbar mvmt loss: flex - MOD ext - NT R SG - MIN L SG - MOD PATIENT REPORTS MILD INCREASE IN LBP WITH LUMBAR ROM TESTING ALL PLANES BUT SHE ESPECIALLY NOTICES THE TIGHTNESS IN HER LEGS WITH FORWARD FLEXION. Core strength: FAIR Palpation: NO ACUTE LUMBAR OR SARAH HIP TENDERNESS. INCREASED MUSCLE TONE SARAH PARASPINALS. TREATMENT: NEUROMUSCULAR REEDUCATION - RETRAINING OF MVMT AND POSTURE FOR SITTING, LYING AND STANDING ACTIVITIES. Balance/Special Test Scores Oswestry Low Back Score: 13 Goals Goal 1:: DECREASE C/O LOW BACK AND L LE SX'S. Goal Time Frame: 4-6 Weeks Goal 2:: IMPROVE PERSONAL CARE, LIFTING, WALKING, SITTING, STANDING, SLEEP, SOCIAL LIFE, TRAVEL AND HOMEMAKING FUNCTION Goal Time Frame: 4-6 Weeks Goal 3:: INSTRUCT IN PROPHYLAXIS Goal Time Frame: 4-6 Weeks Anticipated Interventions Patient/Client Instruction: Educate patient on: Condition, Plan of Care and Risk Factors For the Purpose of:: To improve self management Therapeutic Exercise to Include: Strength training, Body mechanics, Postural training, Flexibilty training, Neuromotor development, In an aquatic setting and Dynamic Lumbar Stabilization For the Purpose of:: To decrease pain, To increase ROM, To improve muscle performance and motor function, To increase tolerance to activity/condition/position and To improve ability of physical actions for home/community/work/leisure Text: Thank you for the opportunity to evaluate your patient. For Medicare and Medicare HMO plans, please review the plan of care and approve it. It will need to be FAXED BACK to us at [phone] for Medicare purposes. For Medicare only, by signing this I certify the plan of care. Please let me know if there are questions or concerns regarding this plan of care. Physician Signature: Date:
--- NOTE | 2023-07-17 09:54 | HP.PTDCSUM ---
Discharge Summary D/C summary: It has been my pleasure to treat JOHN LAWRENCE referred by Dr. Vilma Retana DO, with the diagnosis of LOW BACK AND L HIP PAIN for a total of 10 visit(s). Discharge Date: 07/17/23 Please see the following information for a summary of their discharge status. Subjective Subjective: PATIENT REPORTS SHE IS PRETTY MUCH BACK TO WHERE SHE WAS BEFORE THE FLARE UP IN JANUARY. STILL WAKES UP WITH SOME STIFFNESS BUT THAT IS NOT NEW. SHE STATES SHE WAS ABLE TO PUSH IT IN THE WATER WITHOUT PAIN AND SHE IS GLAD SHE LEARNED SOME WATER TECHNIQUES SHE CAN USE AT THE AND HERE AT . [employer] [facility] AT THE [facility] IS GOING BETTER NOW - NO PAIN. Overall Improvement % Improvement: 90 Objective Objective/Function: PATIENT WAS SEEN TODAY FOR RE-ASSESSMENT OF PROGRESS TOWARD THE SET PT GOALS AND THE NEED FOR FURTHER PHYSICAL THERAPY VS READINESS FOR DISCHARGE. PATIENT HAS MADE GREAT PROGRESS WITH PT AND IS APPROPRIATE FOR D/C TO INDEP EX AT THIS TIME. I ADDED SUPINE SARAH LE DURAL STRETCHING TO HER HEP TODAY WELL. UPON EXAM TODAY: Lumbar mvmt loss: flex - MOD ext - NT R SG - NIL L SG - NIL PATIENT DENIES PAIN WITH LUMBAR ROM TESTING TODAY. INSTRUCTED PATIENT TO CONTINUE TO AVOID LUMBAR EXTENSION AND FOCUS ON CORE STABILITY. PATIENT COMMUNICATES A GOOD UNDERSTANDING. SHE DOES CONTINUE TO HAVE TIGHT SARAH LE HS'S AND GASTROC-SOLEUS COMPLEX'S BUT HER LEGS ARE STRONG AND SHE IS INDEP WITH LAND AND WATER EX PROGRAMS. Goals Goal 1:: DECREASE C/O LOW BACK AND L LE SX'S. Goal Progress: Goal Met Goal 2:: IMPROVE PERSONAL CARE, LIFTING, WALKING, SITTING, STANDING, SLEEP, SOCIAL LIFE, TRAVEL AND HOMEMAKING FUNCTION Goal Progress: Goal Met Goal 3:: INSTRUCT IN PROPHYLAXIS Goal Progress: Goal Met Plan Plan: D/C. PATIENT IS AGREEABLE. D/C Information d/c sentence: If there are questions or concerns regarding this patient's physical therapy, please feel free to call me at [phone]. Thank you for the referral of this patient. Sincerely, Cynthia Street, PT, Cert MDT Balance/Gait/Functional tests Balance/Special Test Scores Oswestry Low Back Score: 4
== END 2023-07-17 19:00 | disposition home or self-care (01) ==
LOC: PT 09:30
PROVIDERS: PCP Internal Medicine; Referring Provider Internal Medicine; Visit Provider Internal Medicine
DX: M54.50 Low back pain, unspecified (principal); M25.552 Pain in left hip
CPT/HCPCS: 97112; 97113; 97162; 97164

== ENCOUNTER → 2023-10-24 | Outpatient (CLI) | payer MEDICARE, OTHER, SELFPAY ==
--- NOTE | 2023-10-24 12:45 | BI_ITS ---
MAMMOGRAPHY - BILATERAL SCREENING REASON FOR EXAM: Female, 73 years old. Routine annual screening examination. PERTINENT HISTORY: Aunts with breast cancer. TECHNIQUE: Digital bilateral breast hayley (3D mammographic acquisition) in the CC and MLO projections. 2-D mediolateral oblique (MLO) and craniocaudad (CC) views of both breasts were obtained. CAD: Full Field Digital Mammography with Computer Added Detection was performed. COMPARISON: Comparison is made with prior study dated October 22, 2022 and October 17, 2021. FINDINGS: Breast Composition: The breasts are almost entirely fatty. There are no dominant masses or suspicious calcifications. No other significant abnormalities are identified. There has been no significant change since the prior study. BI/SCRN MAMM (CAD)W/HAYLEY BILAT IMPRESSION: Stable bilateral screening mammogram. Yearly follow-up mammogram recommended. (A) ASSESSMENT CATEGORY: BIRADS Category 1: Negative. A letter regarding these results will be sent to the patient by the facility within 30 days. Approximately 10% of breast cancers are not detected by mammography. A normal mammogram should not delay biopsy of a clinically suspicious abnormality. [id number] Electronically Signed: Valentin Marti MD at 14:06 EST ,
--- NOTE | 2023-10-24 12:53 | BD_ITS ---
STUDY: DUAL ENERGY X-RAY ABSORPTIOMETRY / DXA REASON FOR EXAM: Female, 73 years old. [id number] TECHNIQUE: Bone Mineral Density (BMD) measurements of lumbar spine and bilateral hips were obtained. COMPARISON: Comparison is made with prior study October 17, 2021. FINDINGS: Lumbar Spine (L1-L4): g/cm2 (1.035) / T-score (0.2) / Z-score (2.3) Findings are suggestive of normal bone density with a low fracture risk. Left Femur Total: g/cm2 (0.839) / T-score (-0.8) / Z-score (0.8) Left Femoral Neck: g/cm2 (0.689) / T-score (-1.4) / Z-score (0.5) Right Femur Total: g/cm2 (0.862) / T-score (-0.7) / Z-score (1.0) Right Femoral Neck: g/cm2 (0.677) / T-score (-1.5) / Z-score (0.4) The T-Scores on the most recent prior examination were: Lumbar Spine (L1-L4): There has been worsening of bone density since the previous examination. Left Femur Total: which represents a worsening of 1.3%. Right Femur Total: which represents an improvement of 6.2%. BD/Dexa Bone Density Study IMPRESSION: The patient is considered osteopenic as outlined below according to World [place] Organization (WHO) criteria with a low fracture risk. There has been worsening of bone density since the previous examination. Reference Information: The T-score is the number of standard deviations above or below the standard which is normal for young adults at their peak bone mineral density. The World Health Organization (WHO) interprets the T-scores as follows: Above -1 Normal bone density Between -1 and -2.5 Osteopenia Equal to / or below -2.5 Osteoporosis As a practical clinical guideline, osteopenia may be graded as follows: Mild -1 through -1.5 Moderate -1.6 through -2.0 Severe -2.1 through -2.4 The Z-score is the number of standard deviations above or below age-matched controls. A Z-score of less than -1.5 would be considered abnormal. References: 1. NIH Osteoporosis and Related Bone Diseases www osteo.org 2. International Society for Clinical Densitometry www iscd.org 3. National Osteoporosis Foundation www nof.org Electronically Signed: Valentin Marti MD at 12:40 EST ,
== END | disposition home or self-care (01) ==
LOC: OPBD 12:44
PROVIDERS: PCP Internal Medicine; Referring Provider Internal Medicine; Visit Provider Internal Medicine
DX: Z12.31 Encounter for screening mammogram for malignant neoplasm of breast (principal); Z78.0 Asymptomatic menopausal state; Z80.3 Family history of malignant neoplasm of breast
CPT/HCPCS: 77063; 77067; 77080

== ENCOUNTER → 2023-12-30 | Outpatient (CLI) | payer MEDICARE, OTHER, SELFPAY ==
[2023-12-30 17:44] LABS: Absolute Lymphocyte Count 1.56 X10^3/uL (0.83-4.51); Basophil# 0.06 X10^3/uL; Basophil% 0.9 % (0-1); Eosinophil# 0.32 X10^3/uL; Hematocrit 33.7 % (37-47); Hemoglobin 10.8 g/dL (12.0-15.0); Lymphocyte # 1.56 X10^3/ul (0.83-4.51); Lymphocyte % 24.4 % (19-41); Mean Corpuscular Hgb 30.2 pg (27.0-32.0); Mean Corpuscular Volume 94.1 fL (81-99); Mean Platelet Vol. 10.5 fl (6.2-12.0); Monocyte# 0.42 X10^3/uL; Monocyte% 6.6 % (0-10); NRBC Flagged by Analyzer 0 % (0-5); Neutrophil # 4.02 X10^3/uL (2.7-7.7); Neutrophil % 62.9 % (47-70); Platelet Count 341 K/mm3 (150-450); RBC Distribution Width CV 13.1 % (11.6-14.6); Red Blood Count 3.58 M/mm3 (4.2-5.4); White Blood Count 6.4 K/mm3 (4.4-11.0)
== END | disposition home or self-care (01) ==
PROVIDERS: PCP Internal Medicine; Referring Provider Internal Medicine Gastroenterology; Visit Provider Internal Medicine Gastroenterology
DX: K50.90 Crohn's disease, unspecified, without complications (principal)
CPT/HCPCS: 36415; 85025

== ENCOUNTER → 2024-01-14 | Outpatient (CLI) | payer MEDICARE, OTHER, SELFPAY ==
[2024-01-14 17:49] LABS: ALB/GLOB Ratio 1.2 RATIO (0.9-2.4); AST(SGOT) 18 U/L (15-37); Alanine Aminotransfer ALT/SGPT 24 U/L (13-56); Albumin, Serum 4.3 g/dL (3.2-5.0); Alkaline Phosphatase 71 U/L (45-117); Anion Gap 4 (5-15); BUN 20 mg/dL (7-18); BUN/Creat Ratio 23.2 RATIO (10-20); Calcium,Total 9.8 mg/dL (8.5-10.1); Chloride 101 mmol/L (98-107); Creatinine, Serum 0.86 mg/dL (0.55-1.02); EST Glomerular Filtration Rate 69 mL/min (>60); Est Glom Filt Rate - Afr Amer 83 mL/min (>60); Globulin 3.5 g/dL (2.2-4.2); Glucose 97 mg/dL (74-106); Potassium 4.1 mmol/L (3.5-5.1); Protein, Total 7.8 g/dL (6.4-8.2); Sodium Level 136 mmol/L (136-145)
[2024-01-14 18:16] LABS: Hepatitis B Surface Antigen Non-Reactive (Nonreactive)
[2024-01-16 20:08] LABS: QNTFERON TB Mitogen Value > 10.00 IU/mL (.); QNTFERON TB Nil Value 0.03 IU/mL (.); QNTFERON TB1+ Ag Value 0.06 IU/mL (.); QNTFERON TB2+ Ag Value 0.03 IU/mL (.); QNTIFERON TB Positive Criteria Negative (Negative)
== END | disposition home or self-care (01) ==
LOC: MTLAB 16:20
PROVIDERS: PCP Internal Medicine; Referring Provider Internal Medicine Gastroenterology; Visit Provider Internal Medicine Gastroenterology
DX: K50.90 Crohn's disease, unspecified, without complications (principal)
CPT/HCPCS: 36415; 80053; 86480; 87340

== ENCOUNTER → 2024-09-22 | Outpatient (CLI) | payer MEDICARE, OTHER, SELFPAY ==
--- NOTE | 2024-09-22 07:37 | CDU_ITS ---
Reason For Study: CAROTID STENOSIS Rt. Velocities/BP Lt. Velocities/BP Prox CCA 63.9/11.0 cm/sec. Prox CCA 63.2/12.2 cm/sec. Mid CCA 62.3/15.0 cm/sec. Mid CCA 87.5/20.4 cm/sec. Dist CCA 57.5/14.1 cm/sec. Dist CCA 73.2/20.4 cm/sec. Prox ICA 69.8/17.9 cm/sec. Prox ICA 69.1/14.2 cm/sec. Mid ICA 112.5/24.8 cm/sec. Mid ICA 87.1/19.5 cm/sec. Dist ICA 125.8/27.2 cm/sec. Dist ICA 94.4/25.7 cm/sec. Rt. ICA/CCA = 125.8/62.3=2.0. Lt. ICA/CCA = 94.4/87.5=1.1. Prox ECA 68.9/4.6 cm/sec. Prox ECA 55.9/9.8 cm/sec. Rt. Vert. 52.8/14.1 cm/sec. Lt. Vert. 51.9/13.1 cm/sec. Right Extracranial There is heterogeneous, irregular atherosclerotic plaque noted in the right common carotid artery. There is heterogeneous, smooth atherosclerotic plaque noted in the right internal carotid artery. HYPOECHOIC structure noted medial to CCA measuring 0.41 x 0.37 cm. The tortuous nature of the right internal carotid artery may result in flow velocities overestimating the degree of stenosis. There is no significant atherosclerotic plaque noted in the right external carotid artery. Antegrade flow is noted in the right vertebral artery. Left Extracranial There is heterogeneous, irregular atherosclerotic plaque noted in the left common carotid artery. There is heterogeneous, irregular atherosclerotic plaque noted in the left internal carotid artery. There is no significant atherosclerotic plaque noted in the left external carotid artery. Procedure Carotid Duplex [id number]. This is a Carotid Duplex examination using B-mode, color flow and specral Doppler. Exam performed in department. VL/Carotid Duplex Ultrasound Interpretation Summary Moderate (50-69%) stenosis right extracranial internal carotid. Hypoechoic stru cture noted medial to CCA measuring 0.41 x 0.37 cm Mild (<50%) stenosis left extracranial internal carotid. Patent and antegrade vertebrals bilaterally. Ordering Physician: Shweta Hester Referring Physician: Shweta Hester Performed By: Irasema Echeverria RDCS, RVT
== END | disposition home or self-care (01) ==
LOC: CVS 07:35
PROVIDERS: PCP Internal Medicine; Referring Provider Internal Medicine; Visit Provider Internal Medicine
DX: I65.23 Occlusion and stenosis of bilateral carotid arteries (principal)
CPT/HCPCS: 93880

== ENCOUNTER → 2024-09-30 | Outpatient (CLI) | payer MEDICARE, OTHER, SELFPAY ==
--- NOTE | 2024-09-30 07:19 | CT_ITS ---
STUDY: CTA NECK WITH CONTRAST REASON FOR EXAM: Female, 74 years old. Abnormal findings on diagnostic imaging of other specified b -- abnormal carotid duplex RADIATION DOSAGE (If Supplied By Facility): CTDIvol = ( 16.33 ) mGy, DLP = ( 478.87 ) mGycm TECHNIQUE: CT angiography with multi-detector data acquisition was performed from the aortic arch to the skull base following intravenous administration of IV 100mL [id number]-300. MIP images were reconstructed from the axial data set. Post-processing of the angiographic images was performed, with multiplanar reformation and 3D reconstruction. Individualized dose optimization techniques were used for this CT. COMPARISON: None. 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 AORTIC ARCH: There is a mild degree of atherosclerotic calcific plaque formation of the aortic arch and great vessels arising from the aortic arch, without a hemodynamically significant stenosis. There is a normal origin of the brachiocephalic, left common carotid, and left subclavian arteries. Mild atherosclerotic plaque formation at the origin of the left common carotid artery and left subclavian artery. RIGHT CAROTID ARTERIES: There is atherosclerotic plaque formation of the common carotid artery, but without a hemodynamically significant stenosis. Normal right common carotid bulb. There is moderate atherosclerotic plaque formation of the origin of the right internal carotid artery with an estimated stenosis of 50-69% stenosis. Normal visualized cervical portion of the right internal carotid artery. Normal origin of the right external carotid artery (ECA). LEFT CAROTID ARTERIES: There is atherosclerotic plaque formation of the common carotid artery, but without a hemodynamically significant stenosis. Normal left common carotid bulb. There is mild atherosclerotic plaque formation of the origin of the left internal carotid artery with less than 50% cross sectional diameter stenosis. Normal visualized cervical portion of the left internal carotid artery. Normal origin of the left external carotid artery (ECA). VERTEBRAL ARTERIES: Normal bilateral vertebral arteries. CT/CTA Neck W/WO Contrast IMPRESSION: Calcific plaque at the origin of the right internal carotid artery causing between 50 and 69% luminal stenosis. Calcified nonstenotic plaque in the distal portion of the right common carotid artery. Calcific plaque at the origin of the left internal carotid artery causing less than 50% stenosis. Electronically Signed: Valentin Marti MD at 15:13 EST ,
[2024-09-30 07:42] LABS: CREATININE FINGERSTICK < 1.0 mg/dL (0.55-1.02); EGFR FINGERSTICK > 60.0000 mL/min (>60)
== END | disposition home or self-care (01) ==
LOC: CT 07:19
PROVIDERS: PCP Internal Medicine; Referring Provider Internal Medicine; Visit Provider Internal Medicine
DX: R93.89 Abnormal findings on diagnostic imaging of other specified body structures (principal)
CPT/HCPCS: 70498; Q9967

== ENCOUNTER → 2024-10-26 | Outpatient (CLI) | payer MEDICARE, OTHER, SELFPAY | END | disposition home or self-care (01) | PROVIDERS: PCP Internal Medicine; Referring Provider Internal Medicine; Visit Provider Internal Medicine | DX: Z12.31 Encounter for screening mammogram for malignant neoplasm of breast (principal) | CPT/HCPCS: 77063; 77067 ==

== ENCOUNTER → 2025-09-21 | Outpatient (CLI) | payer MEDICARE, OTHER, SELFPAY ==
[2025-09-21 14:50] LABS: Mucous, Urine 0 SEEN /hpf (<or=2+); Red Blood Cells-Urine 0 SEEN /hpf (0-5); Squamous Epithelial Cells - UA 0 SEEN /hpf (5-10)
[2025-09-21 14:57] LABS: Color, Urine Yellow (Yellow); Glucose, Dipstick Normal (Normal); Ketone-Dipstick Negative (Negative); Leukocyte Esterase-Dipstick Negative /ul (Negative); Nitrite-Dipstick Negative (Negative); Occult Blood-Urine Negative /ul (Negative); Protein-Dipstick 15 mg/dl (Negative); Specific Gravity, Urine 1.010 (1.002-1.030); Urine Bilirubin Dipstick Negative (Negative)
[2025-09-21 15:01] LABS: Hematocrit 35.0 % (37-47); Hemoglobin 11.0 g/dL (12.0-15.0); Mean Corp Hgb Conc 31.4 g/dL (32-36); Mean Corpuscular Volume 93.1 fL (81-99); Platelet Count 326 K/mm3 (150-450); Red Blood Count 3.76 M/mm3 (4.2-5.4); White Blood Count 6.2 K/mm3 (4.4-11.0)
[2025-09-21 15:15] LABS: Immature Granulocytes Count 0.010 X10^3/uL (0.0-0.0); RBC Distribution Width CV 13.3 % (11.6-14.6); RBC Distribution Width SD 45.7 fl (35.1-43.9)
[2025-09-21 15:32] LABS: Creatinine, Urine (random) 37.50 mg/dL (28.00-217.00); Microalbumin,Random Urine < 12.0 mg/L (<20 mg/L)
[2025-09-21 15:52] LABS: AST(SGOT) 22 U/L (<=31); Alanine Aminotransfer ALT/SGPT 21 U/L (<=34); Albumin, Serum 4.6 g/dL (3.4-4.8); Alkaline Phosphatase 76 U/L (35-104); Anion Gap 11 (5-15); BUN 20 mg/dL (4-19); BUN/Creat Ratio 26.6 RATIO (10-20); Calcium,Total 10.1 mg/dL (7.6-11.0); Carbon Dioxide 26.7 mmol/L (21.0-32.0); Chloride 100 mmol/L (98-108); Globulin 2.9 g/dL (2.2-4.2); Glucose 85 mg/dL (70-99); Potassium 4.1 mmol/L (3.3-5.1); Vitamin B12 1623 pg/mL (180-914)
== END | disposition home or self-care (01) ==
LOC: LABSPEC 13:31
PROVIDERS: PCP Internal Medicine; Referring Provider Internal Medicine; Visit Provider Internal Medicine
DX: K50.90 Crohn's disease, unspecified, without complications (principal); I10 Essential (primary) hypertension
CPT/HCPCS: 80053; 81001; 82043; 82570; 82607; 83921; 85025

== ENCOUNTER → 2025-10-12 | Outpatient (CLI) | payer MEDICARE, OTHER, SELFPAY ==
[2025-10-12 12:31] LABS: Hematocrit 34.5 % (37-47); Hemoglobin 11.3 g/dL (12.0-15.0); Immature Granulocytes Count 0.010 X10^3/uL (0.0-0.0); Immature Reticulocyte Fraction 9.90 % (3.00-15.90); Mean Corp Hgb Conc 32.8 g/dL (32-36); Mean Corpuscular Volume 90.6 fL (81-99); Mean Platelet Vol. 10.7 fl (6.2-12.0); NRBC Flagged by Analyzer 0 % (0-5); Platelet Count 363 K/mm3 (150-450); RBC Distribution Width CV 13.1 % (11.6-14.6); RBC Distribution Width SD 43.1 fl (35.1-43.9); Red Blood Count 3.81 M/mm3 (4.2-5.4); Reticulocyte Count 1.67 % (0.5-1.5); White Blood Count 6.6 K/mm3 (4.4-11.0)
[2025-10-12 15:55] LABS: Ferritin 31 ng/mL (22-378); Iron 77 ug/dL (50-170); Iron Binding Capacity,Total 420 ug/dL (250-450); Iron Binding Capacity,Unsat 343 ug/dL (228-428); LDH 151 U/L (84-246)
[2025-10-12 16:35] LABS: FOLATES,SERUM (FOLIC ACID) > 40.00 ng/mL (4.60-34.80)
[2025-10-14 14:09] LABS: PROEL- A/G Ratio 1.2 (0.7-1.7); PROEL- Albumin 4.0 g/dL (2.9-4.4); PROEL- Alpha-1 Globulin 0.2 g/dL (0.0-0.4); PROEL- Alpha-2 Globulin 0.9 g/dL (0.4-1.0); PROEL- Beta Globulin 1.1 g/dL (0.7-1.3); PROEL- Gamma Globulin 1.2 g/dL (0.4-1.8); PROEL- Globulin, Total 3.4 g/dL (2.2-3.9); PROEL- TOTAL PROTEIN 7.4 g/dL (6.0-8.5); PROEL-M-Spike Not Observed g/dL (Not Observed)
== END | disposition home or self-care (01) ==
LOC: CIMLAB 10:54
PROVIDERS: PCP Internal Medicine; Referring Provider Internal Medicine; Visit Provider Internal Medicine
DX: D64.9 Anemia, unspecified (principal)
CPT/HCPCS: 36415; 82728; 82746; 83540; 83550; 83615; 84165; 85025; 85045; 86880

== ENCOUNTER → 2025-11-04 | Outpatient (CLI) | payer MEDICARE, OTHER, SELFPAY ==
--- NOTE | 2025-11-04 14:07 | BD_ITS ---
PROCEDURE: DEXA BONE DENSITY STUDY 11/04/2025 REASON FOR EXAM: F, age 75 y/o . Postmenopausal. TECHNIQUE: Procedure Code: BDDBD Modality: DX Procedure: DEXA BONE DENSITY STUDY COMPARISON: October 24, 2023. FINDINGS: BMD and T-SCORES Lumbar spine: 1.075 g/cm2, T-score 0.5 Levels: L1 through L4 Change from prior: Improvement of 3.9%. Left femoral neck: 0.647 g/cm2, T-score -1.8 Femoral neck comparison data not recommended for monitoring change. Left total hip: 0.824 g/cm2, T-score -1.0 Change from prior: Loss of 1.8%. Right femoral neck: 0.624 g/cm2, T-score -2.0 Femoral neck comparison data not recommended for monitoring change. Right total hip: 0.837 g/cm2, T-score -0.9 Change from prior: Loss of 2.9%. The World Health Organization has defined the following categories based on bone density: Normal bone density: T-score equal to or greater than -1.0 Osteopenia: T-score between -1.0 and -2.5 Osteoporosis: T-score equal to or less than -2.5 FRAX (or Comparable) Fracture Risk Assessment: 10 Year Probability of Fracture: Major Osteoporotic Fracture: 13% Hip Fracture: 3.3% (Note: FRAX is not to be reported in setting of normal range bone density, osteoporosis on DEXA, known history of osteoporosis, prior osteoporotic hip or vertebral fracture, or for any patient undergoing pharmacological treatment for bone loss.) The National Osteoporosis Foundation (NOF) recommends pharmacological treatment for patients with a FRAX 10-year risk of 3% or higher for a hip fracture, or 20% or higher for a major osteoporotic fracture, to prevent osteoporosis and reduce fracture risk. The patient does meet the pharmacological treatment recommendations for prevention of osteoporosis. BD/Dexa Bone Density Study IMPRESSION: OSTEOPENIA. Recommend follow-up as clinically warranted. Reading Location: [place] [id number]
--- NOTE | 2025-11-04 15:00 | BI_ITS ---
EXAM: SCRN MAMM (CAD)W/HAYLEY BILAT DATE: 11/04/2025 CLINICAL HISTORY: F, Age 75 y/o , SCRN MAMM (CAD)W/HAYLEY BILAT Aunts with breast cancer. TECHNIQUE: Procedure Code: [id number] Modality: MG Procedure: SCRN MAMM (CAD)W/HAYLEY BILAT COMPARISON: Prior exam(s) dated October 26, 2024. FINDINGS: TISSUE DENSITY: The breasts are almost entirely fatty. Bilateral Breast Mammographic Findings: No significant masses, calcifications or other abnormalities are identified. No suspicious masses, areas of developing architectural distortion, or suspicious calcifications. There has been no significant interval change. BI/SCRN MAMM (CAD)W/HAYLEY BILAT IMPRESSION: Stable bilateral screening mammogram. OVERALL FINAL ASSESSMENT BI-RADS 1: NEGATIVE. RECOMMENDATION: Routine annual follow-up in 1 Year Additional Recommendation none A letter with findings and recommendations will be mailed to the patient. Reading Location: [place] [address]
== END | disposition home or self-care (01) ==
PROVIDERS: PCP Internal Medicine; Referring Provider Internal Medicine; Visit Provider Internal Medicine
DX: Z12.31 Encounter for screening mammogram for malignant neoplasm of breast (principal); Z78.0 Asymptomatic menopausal state
CPT/HCPCS: 77063; 77067; 77080